=== PATIENT | female | born 1940 | race Caucasian/White ===

== ENCOUNTER → 2017-01-05 | Outpatient (CLI) | payer OTHER ==
[~2017-01-05] MED LIST: ASPI81TA28 PO; COEN1CAP32 PO; GARL400T4 PO; HYDR12.55 PO; LEVO50TA6 PO; METF1TAB85 PO; MULT-190 PO; MULT-845 PO; MULTCHW4 PO; OMEG1CAP26 PO; SIMV20TA5 PO; VTMD1000 PO
[2017-01-05 13:21] LABS: BASO % 1.1 %; BASO ABS # 0.06 K/uL (0-0.2); COMPLETE YES; EOS % 3.2 %; HEMATOCRIT 39.3 % (37-47); IG% 0.2 %; LYMPH % 26.9 %; LYMPH ABS # 1.52 K/uL (1.2-3.4); MEAN CELL VOLUME 87.5 fL (80-100); MEAN CORPUSCULAR HEMOGLOBIN 30.3 pg (25-34); MEAN CORPUSCULAR HGB CONC 34.6 g/dl (32-36); MEAN PLATELET VOLUME 10.6 fL (7.4-10.4); MONO % 7.3 %; NEUT % 61.3 %; PLATELET COUNT 288 K/uL (130-400); RED BLOOD COUNT 4.49 M/uL (4.2-5.4); WHITE BLOOD COUNT 5.65 K/uL (4.8-10.8)
[2017-01-05 13:41] LABS: ESTIMATED AVERAGE GLUCOSE 143 mg/dl; HA1C FLAG Normal (Normal)
[2017-01-05 13:53] LABS: CREATININE RANDOM URINE < 13.0 mg/dl
[2017-01-05 14:16] LABS: ALT/SGPT 26 U/L (12-78); AST/SGOT 19 U/L (15-37); BLOOD UREA NITROGEN 16 mg/dl (7-18); BUN/CREATININE RATIO 18.3 (10-20); CALCIUM 8.8 mg/dl (8.5-10.1); CARBON DIOXIDE 29 mmol/L (21-32); CHLORIDE 103 mmol/L (98-107); CREATININE 0.87 mg/dl (0.60-1.20); GLUCOSE 132 mg/dl (70-99); POTASSIUM 3.7 mmol/L (3.5-5.1); SODIUM 141 mmol/L (136-145)
[2017-01-05 14:24] LABS: ALKALINE PHOSPHATASE 73 U/L (45-117); CHOLESTEROL 147 mg/dl (0-200); CHOLESTEROL/HDL RATIO 2.6; HDL CHOLESTEROL 56 mg/dl; LDL CHOLESTEROL CALCULATED 62 mg/dl; TRIGLYCERIDES 144 mg/dl (0-150); VERY LOW DENSITY LIPOPROT CALC 29 mg/dl
== END | disposition home or self-care (01) ==
LOC: C.LABMFLN 09:34
PROVIDERS: ATTEND Family Medicine
DX: I10 Essential (primary) hypertension (principal); E78.5 Hyperlipidemia, unspecified; E11.9 Type 2 diabetes mellitus without complications; E03.9 Hypothyroidism, unspecified

== ENCOUNTER → 2017-07-19 | Outpatient (CLI) | payer OTHER ==
[2017-07-19 13:53] LABS: BLOOD UREA NITROGEN 14 mg/dl (7-18); BUN/CREATININE RATIO 14.9 (10-20); CALCIUM 9.2 mg/dl (8.5-10.1); CARBON DIOXIDE 29 mmol/L (21-32); CHLORIDE 102 mmol/L (98-107); CREATININE 0.91 mg/dl (0.60-1.20); GLUCOSE 147 mg/dl (70-99); PHOSPHORUS 3.5 mg/dl (2.5-4.9); POTASSIUM 3.8 mmol/L (3.5-5.1); SODIUM 140 mmol/L (136-145)
== END | disposition home or self-care (01) ==
LOC: C.LABMFLN 07:48
PROVIDERS: ATTEND Family Medicine
DX: E11.9 Type 2 diabetes mellitus without complications (principal)

== ENCOUNTER → 2018-01-14 | Outpatient (CLI) | payer OTHER ==
[2018-01-14 12:47] LABS: BASO % 0.7 %; BASO ABS # 0.04 K/uL (0-0.2); EOS % 3.8 %; EOS ABS # 0.22 K/uL (0-0.5); HEMATOCRIT 41.3 % (37-47); HEMOGLOBIN 13.7 g/dL (12.0-16.0); IG# 0.01 K/uL (0.00-0.02); LYMPH % 26.7 %; LYMPH ABS # 1.53 K/uL (1.2-3.4); MEAN CELL VOLUME 91.4 fL (80-100); MEAN CORPUSCULAR HEMOGLOBIN 30.3 pg (25-34); MEAN CORPUSCULAR HGB CONC 33.2 g/dl (32-36); MONO % 7.9 %; MONO ABS # 0.45 K/uL (0.11-0.59); NEUT % 60.7 %; NEUT ABS # 3.48 K/uL (1.4-6.5); PLATELET COUNT 295 K/uL (130-400); RED CELL DISTRIBUTION WIDTH CV 13.1 % (11.5-14.5); RED CELL DISTRIBUTION WIDTH SD 43.8 fL (36.4-46.3); WHITE BLOOD COUNT 5.73 K/uL (4.8-10.8)
[2018-01-14 13:09] LABS: HEMOGLOBIN A1C 6.5 % (4.5-5.6)
[2018-01-14 13:27] LABS: ALBUMIN 3.7 gm/dl (3.4-5.0); BLOOD UREA NITROGEN 19 mg/dl (7-18); CARBON DIOXIDE 27 mmol/L (21-32); GLUCOSE 143 mg/dl (70-99); POTASSIUM 3.7 mmol/L (3.5-5.1); SODIUM 138 mmol/L (136-145)
[2018-01-14 13:37] LABS: ALKALINE PHOSPHATASE 80 U/L (45-117); ALT/SGPT 24 U/L (12-78); AST/SGOT 17 U/L (15-37); CHOLESTEROL 148 mg/dl (0-200); CREATININE 1.01 mg/dl (0.60-1.20); LDL CHOLESTEROL CALCULATED 69 mg/dl; TOTAL PROTEIN 7.5 gm/dl (6.4-8.2)
== END | disposition home or self-care (01) ==
LOC: C.LABMFLN 07:12
PROVIDERS: ATTEND Family Medicine
DX: E11.9 Type 2 diabetes mellitus without complications (principal); I10 Essential (primary) hypertension; E03.9 Hypothyroidism, unspecified; E78.5 Hyperlipidemia, unspecified

== ENCOUNTER → 2018-05-17 | Day surgery (SDC) | payer OTHER ==
[2018-05-12 13:55] VITALS: Ht 171.5 cm; Wt 95.5 kg
[~2018-05-17] VITALS: Ht 171.5 cm; Wt 95.5 kg
[~2018-05-17] MED LIST changes: +AMOX500C3 PO; +ATROPINE SULFATE 0.1 MG/ML 5ML SYR IV PRN; +BUPIVACAINE 0.5 % 5 MG/1 ML PF 10ML VIAL ONE; +CEFAZOLIN 2000MG IV PUSH 15 ML IV SCH; +CEFAZOLIN SOD 1 GM VIAL ONE; +CEPH500C2 PO; +CHRO1CAP7 PO; +COEN1CAP17 PO; -COEN1CAP32 PO; +CYAN100020 PO; +DEXAMETHASONE SOD INJ 4 MG/ML VIAL ONE; +EpHEDrine SULFATE 50MG/5ML SYR ONE; +EpHEDrine SULFATE INJ 50 MG/ML AMP IV PRN; +FENTANYL CITRATE INJ 50 MCG/1 ML 2 ML VIAL IV PRN; +FENTANYL CITRATE INJ 50 MCG/1 ML 2 ML VIAL ONE; +GARL10007 PO; -GARL400T4 PO; +HYDR-5688 PO; +HYDROCODONE/ACETAMIN 5/325MG TAB PO PRN; +IBUPROFEN 600 MG TAB PO PRN; +LACTATED RINGER'S 1000ML 1,000 ML IV SCH; -LEVO50TA6 PO; +LEVO75TA5 PO; +LIDOCAINE HCL 2% 2 ML VIAL (20MG/ML) ONE; +METHYLENE BLUE 0.5% 10 ML VIAL ONE; +MIDAZOLAM HCL 1 MG/ML 2ML VIAL ONE; -MULTCHW4 PO; +ONDANSETRON INJ 2 MG/ML 2 ML VIAL IV PRN; +ONDANSETRON INJ 2 MG/ML 2 ML VIAL ONE; +PROMETHAZINE HCL INJ 6.25 MG in SODIUM CHLORIDE 0.9% 50ML 50 ML IV PRN; +PROPOFOL IV EMULSION 10 MG/ML 20 ML VIAL ONE; +SODIUM CHLORIDE 0.9% 1000ML 1,000 ML IV SCH; +SODIUM CHLORIDE 0.9% INJ 10 ML VIAL ONE
--- NOTE | 2018-05-17 11:46 | History & Physical Bridge - [place] ---
H&P Re-Evaluation Bridge Note: I have examined the patient, reviewed the History & Physical and in the interval since the performance of the History & Physical I have noted the following changes of clinical significance: No changes noted
--- NOTE | 2018-05-17 12:57 | [facility] Operative Report ---
Operative Report Operative Date May 17, 2018. Pre-Operative Diagnosis Breast Cancer Post-Operative Diagnosis Same Procedure(s) Performed Right Breast Tissue Re-Excision Surgeon Dr. Perry Labor Arbitrator Surgeon(s) None Estimated Blood Loss 10 mL Findings 50 cc hematoma Specimens A. Right Breast Tissue - out @ 1228. Long Silk Suture = Inferior, Short Silk Suture = Superior, Plain Suture = Posterior/Deep, Methylene Blue = New Lateral Margin Drains None Anesthesia Type General Complication(s) none Disposition Recovery Room / PACU I attest to the content of the Intraoperative Record and any orders documented therein. Any exceptions are noted below.
--- NOTE | 2018-05-17 13:00 | Discharge Instructions-SurgCtr ---
Discharge Instructions Date of Service May 17, 2018. Visit Reason for Visit: Right Breast Dcis Discharge Discharge Diagnosis / Problem: Rt breast cancer Discharge Goals Goal(s): Decrease discomfort, Improve function, Improve disease control Medications Stopped Medications Name(s): aspirin COQ 10 Activity Recommendations Activity Limitations: as noted below Lifting Limitations: no more than 10 pounds Exercise/Sports Limitations: until after follow-up appointment May Resume Sexual Activity: when tolerated Shower/Bathe: tomorrow Driving or Machine Use: resume 3 days after discharge Anesthesia . Post Anesthesia Instructions: If you have had General Anesthesia or IV Sedation: * Do not drive today. * Resume driving when surgeon permits. * Do not make important decisions or sign legal documents today. * Call surgeon for: 1. Temperature elevations greater than 101 degrees F. 2. Uncontrollable pain. 3. Excessive bleeding. 4. Persistent nausea and vomiting. 5. Medication intolerance (nausea, vomiting or rash). * For nausea and vomiting use only clear liquids such as: tea, soda, bouillon until nausea subsides, then gradually increase diet as tolerated. * If you have any concerns or questions, call your surgeon's office. If physician is unavailable and it is an emergency, call 911 or go to the nearest emergency room. . Instructions / Follow-Up Instructions / Follow-Up SPECIAL CARE INSTRUCTIONS: * Cover incisions and change daily for comfort/drainage. * May use ibuprofen for pain as tolerated. * Expect some swelling and bruising. Call your doctor if: * Temperature above 101 degrees * Pain not relieved by pain medicine ordered * There is increased drainage or redness from any incision * You have any unanswered questions or concerns [phone]. FOLLOW UP VISIT: If not already scheduled, please call the office for a follow-up visit. for next week- some suture removal OFFICE PHONE NUMBER: Dr. Perry Office Diet Recommendations Home Diet: resume previous diet Procedures Procedures Performed: Right Breast Tissue Re-Excision Pending Studies Studies pending at discharge: no Medical Emergencies . Who to Call and When: Medical Emergencies: If at any time you feel your situation is an emergency, please call 911 immediately. . Non-Emergent Contact Non-Emergency issues call your: Primary Care Provider, Surgeon . . "Provider Documentation" section prepared by Ishmael Perry. .
--- NOTE | 2018-05-17 13:50 | OPERATIVE REPORT ---
DATE OF OPERATION: 05/17/2018 NAME OF OPERATION: Reexcision of right breast tissue. PREOPERATIVE DIAGNOSIS: Right breast cancer. POSTOPERATIVE DIAGNOSIS: Right breast cancer. STAFF SURGEON: Dr. Perry. ANESTHESIA: General. DESCRIPTION OF PROCEDURE: The patient was brought in the operating room and placed on the operating table in supine position. Her right breast was prepped and draped in usual fashion. She had Steri-Strips in place. These were removed. Her right axilla had sutures in place of the incision. These were removed. 0.5% plain Marcaine was used to anesthetize the incision in the breast. It was reopened, encountering some hematoma which was removed. The breast was then irrigated. I then removed the lateral and posterior/deep tissue I then marked the tissue with a long silk suture inferior, short silk suture superior, plain suture was posterior/deep, and then methylene blue was on the new lateral margin. 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 At this point, after appropriate irrigation with antibiotic solution, the deep tissue was reapproximated using 2-0 plain catgut suture, then the subcutaneous tissue reapproximated using 2-0 chromic suture, then the skin reapproximated using 5-0 Prolene suture. Dressing applied and the patient transferred to recovery room in stable condition. I attest to the content of the Intraoperative Record and any orders documented therein. Any exceptions are noted below. ARIANNA
[2018-05-17 13:54] VITALS: BP 143/82; PULSE 81; O2SAT 92
--- NOTE | 2018-05-17 13:59 | Anesthesia Progress Nt - [facility] ---
Anesthesia Post Op Note Date & Time May 17, 2018 at 13:59 Vital Signs Pain Intensity: 0 Vital Signs Past 12 Hours Date Time Temp Pulse Resp B/P (MAP) Pulse Ox O2 Delivery O2 Flow Rate FiO2 05/17/18 13:54 81 20 143/82 (102) 92 Room Air 05/17/18 13:38 36.5 81 22 153/76 (101) 94 Room Air 05/17/18 13:36 162/84 05/17/18 13:34 82 14 05/17/18 13:34 83 14 95 05/17/18 13:33 79 16 90 05/17/18 13:33 79 16 05/17/18 13:33 36.4 79 20 163/77 98 Room Air 05/17/18 13:31 163/77 05/17/18 13:28 79 14 05/17/18 13:28 80 14 91 05/17/18 13:27 153/78 05/17/18 13:24 78 18 99 05/17/18 13:24 77 18 05/17/18 13:23 78 13 05/17/18 13:23 78 13 99 05/17/18 13:21 157/87 05/17/18 13:18 78 15 05/17/18 13:18 77 15 99 05/17/18 13:17 78 16 99 05/17/18 13:17 78 16 05/17/18 13:16 164/77 05/17/18 13:12 80 17 99 05/17/18 13:12 80 17 05/17/18 13:11 165/80 05/17/18 13:08 168/78 05/17/18 13:07 36.5 86 16 168/78 96 Mask 10 05/17/18 11:25 36.8 64 20 145/81 (102) 95 Notes Mental Status: alert / awake / arousable, participated in evaluation Pt Amnestic to Procedure: Yes Nausea / Vomiting: adequately controlled Pain: adequately controlled Airway Patency, RR, SpO2: stable & adequate BP & HR: stable & adequate Hydration State: stable & adequate Anesthetic Complications: no major complications apparent
== END | disposition home or self-care (01) ==
LOC: X.SURG 10:46
PROVIDERS: ATTEND Surgery
DX: D05.11 Intraductal carcinoma in situ of right breast (principal); I10 Essential (primary) hypertension; E11.9 Type 2 diabetes mellitus without complications; Z79.82 Long term (current) use of aspirin; Z79.84 Long term (current) use of oral hypoglycemic drugs; Z79.899 Other long term (current) drug therapy

== ENCOUNTER → 2018-05-30 | Outpatient (CLI) | payer OTHER ==
[~2018-05-30] MED LIST changes: -ATROPINE SULFATE 0.1 MG/ML 5ML SYR IV PRN; -BUPIVACAINE 0.5 % 5 MG/1 ML PF 10ML VIAL ONE; -CEFAZOLIN 2000MG IV PUSH 15 ML IV SCH; -CEFAZOLIN SOD 1 GM VIAL ONE; -DEXAMETHASONE SOD INJ 4 MG/ML VIAL ONE; -EpHEDrine SULFATE 50MG/5ML SYR ONE; -EpHEDrine SULFATE INJ 50 MG/ML AMP IV PRN; -FENTANYL CITRATE INJ 50 MCG/1 ML 2 ML VIAL IV PRN; -FENTANYL CITRATE INJ 50 MCG/1 ML 2 ML VIAL ONE; -HYDROCODONE/ACETAMIN 5/325MG TAB PO PRN; -IBUPROFEN 600 MG TAB PO PRN; -LACTATED RINGER'S 1000ML 1,000 ML IV SCH; -LIDOCAINE HCL 2% 2 ML VIAL (20MG/ML) ONE; -METHYLENE BLUE 0.5% 10 ML VIAL ONE; -MIDAZOLAM HCL 1 MG/ML 2ML VIAL ONE; -ONDANSETRON INJ 2 MG/ML 2 ML VIAL IV PRN; -ONDANSETRON INJ 2 MG/ML 2 ML VIAL ONE; -PROMETHAZINE HCL INJ 6.25 MG in SODIUM CHLORIDE 0.9% 50ML 50 ML IV PRN; -PROPOFOL IV EMULSION 10 MG/ML 20 ML VIAL ONE; -SODIUM CHLORIDE 0.9% 1000ML 1,000 ML IV SCH; -SODIUM CHLORIDE 0.9% INJ 10 ML VIAL ONE
--- NOTE | 2018-05-31 14:58 | MAMMOGRAPHY REPORT ---
BREAST MRI OF BOTH BREASTS: 05/30/2018 CLINICAL HISTORY: 78-year-old woman initially diagnosed with right breast invasive ductal carcinoma o n 04/13/2018. 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 Reexcision was p erformed and DCIS also involved the new lateral margin. Retrospective mammography assessment demonstr ates the DCIS is mammographically occult. COMPARISON: Prior screening mammograms dated 04/06/2012, 05/31/2013, 10/03/2014, 10/08/2015, 01/12/2017, 03/31/2018, diagnostic mammogram and ultrasound dated 04/07/2018, ultrasound core biopsy and postproce dure mammograms dated 04/13/2018, right breast needle localization and specimen radiograph dated 2017. TECHNIQUE: Using a 1.5 Tana magnet and dedicated breast coil, multisequence axial images were obtain ed through the breasts. After uneventful IV administration of 10 mL of Gadavist, dynamic multiphase contrast-enhanced axial images, and sagittal postcontrast were obtained. Temporal subtraction axial images and 3-D MIP images are provided. Everything was then reviewed on a 3-D workstation, [employer]. FINDINGS: Right breast: There is moderate background parenchymal enhancement of the right breast. There is als o diffuse skin thickening, skin edema and trabecular edema of the right breast most prominent anterio rly. There are 2 fluid collections/lumpectomy cavities in the right breast. The first is located in the 12:00 anterior right breast, likely representing the first lumpectomy cavity, which is oval in s hape measuring 4.4 cm in AP by 2.2 cm in craniocaudal by 2.9 cm in transverse dimension. There is di ffuse circumferential non-mass enhancement surrounding this biopsy cavity which could represent posts urgical change and/or residual disease, although it should be noted that all of the surgical specimen margins were negative for additional disease except the lateral margin. A second discreet yet abutt ing fluid collection is identified lateral, posterior and slightly inferior to the first, measuring 6 .3 cm in AP by 4.5 cm in craniocaudal by 4.2 cm in transverse dimension, containing heterogeneous blo od products within. There is mild non-mass enhancement surrounding this fluid collection, but asymme tric non-mass enhancement along the inferior lateral aspect measuring 3.9 cm in AP by 1.8 cm in trans verse dimension, best seen on axial page 72/116. This is concerning for residual DCIS given the asym metric nature although again, postsurgical change could appear similar. No other areas of suspicious mass enhancement is seen in the right breast. There is architectural distortion in the right axilla from sentinel lymph node biopsy. No suspicious right axillary, subpectoral or intramammary lymph no maikel identified. Left breast: There is mild background parenchymal enhancement of the left breast with scattered round ed and oval enhancing foci throughout. There are 2 discrete focal areas of somewhat linear enhanceme nt in the left breast, the first linear non-mass enhancement is seen in the 1:00 posterior left breas t measuring 0.8 cm (axial page 44/116, sagittal page 21/120) with associated persistent kinetics, no T2 hyperintensity. The second is located in the 12:00 to 1:00 middle one third of the left breast on axial page 54/116, sagittal page 22/120, measuring 0.7 cm also with associated persistent kinetics. No dominant enhancing mass or suspicious washout kinetics identified in the left breast. No focal s kin thickening or nipple retraction. No suspicious left axillary, subpectoral or internal mammary ly mphadenopathy. IMPRESSION: ACR BI-RADS CATEGORY 4: SUSPICIOUS 1. There are recent postsurgical changes in the right breast with 2 discrete lumpectomy cavities/flu id collections seen in the 12:00 anterior breast and right upper outer quadrant. There is diffuse no n-mass enhancement circumferentially surrounding the anterior 12:00 lumpectomy cavity and somewhat as ymmetric focal non-mass enhancement along the inferolateral aspect of the second lumpectomy cavity/fl uid collection. Although all of these findings could be related to recent surgery representing posts urgical change and edema, the focal nature of the non-mass enhancement near the second larger lumpect essence cavity is concerning for additional DCIS. Correlation with surgical margins is recommended with regard to further surgical management. 2. Mild background enhancement of the left breast, with 2 conspicuous subcentimeter focal areas of l inear non-mass enhancement at approximately 1:00 posterior depth and 12:00 to 1:00 middle depth that could represent fibrocystic change although DCIS cannot be completely excluded. MRI guided biopsy of 1 versus both of these areas is recommended for further characterization. Given the non-mass nature of the enhancement, second look ultrasound would likely be unyielding. 3. No suspicious right or left axillary lymphadenopathy. Aleyda Epps M.D. ay/:05/30/2018 20:57:35 Glass Enamel Mixer: retort load expediter, [facility] letter sent: Abnormal 4/5 BI-RADS Code: ACR BI-RADS Category 4: Suspicious
== END | disposition home or self-care (01) ==
LOC: C.MRI 06:01
PROVIDERS: ATTEND Surgery
DX: D05.11 Intraductal carcinoma in situ of right breast (principal)

== ENCOUNTER → 2018-06-08 | Outpatient (CLI) | payer OTHER ==
[~2018-06-08] MED LIST changes: +GADAVIST IV PRN; +LIDO/EPINEPHRINE/SOD BICARB 20 ML VIAL ONE; +LIDOCAINE 1% BUFFERED INJ 20 ML VIAL ONE
--- NOTE | 2018-06-08 12:04 | Discharge Instructions ---
Discharge Instructions Procedure Procedure Date: Jun 08, 2018. Reason for visit: 2 Left breast non mass enhancement Discharge Discharge Date: Jun 08, 2018. Discharge Diagnosis: post left breast MRI guided biopsy x 2 Instructions Activity Recommendations: Additional Limitations (see below) Return to School/Work: no limitations Recommended Home Diet: No Limitations Provider Instructions: ACTIVITY RECOMMENDATIONS: * No lifting, pushing, pulling or exercising the affected side for three days. RETURN TO SCHOOL/WORK: * You may return to work/school after the procedure, but do not perform any strenuous activities for 24 to 48 hours. MEDICATIONS: * Tylenol (two 325 mg) every four to six hours if needed for mild pain (if not allergic to Tylenol). DIET: * Resume previous diet. SPECIAL CARE INSTRUCTIONS: * Keep biopsy site dry for 24 hours. May shower after 24 hours, but do not soak (bathe) incision. May remove Tegaderm (plastic patch) 24 hours after procedure * Leave the steri-strips on for one week. Allow the steri-strips to fall off by themselves. If not off after one week, you may remove them. You may place a Bandaid crosswise over the strips, if desired. * Apply ice 10 minutes on and 10 minutes off as needed. * Wear a bra at bedtime to sleep more comfortably for 2-3 days. * Your referring physician should have the results after approximately 5 to 7 business days. * Call for unusual bleeding, fever, drainage, etc or if you have any questions call [phone] during normal business hours or after hours call Dr Epps, . FOLLOW UP VISIT: Follow-up with Referring Physician as scheduled. Allergies Coded Allergies: Adhesives (Verified Allergy, Intermediate, rash itchy blister, 05/17/18) Sunni Tran Recommendations: Call your doctor if: * Temperature above 101 degrees * Pain not relieved by pain medicine ordered * There is increased drainage or redness from any incision * You have any unanswered questions or concerns. Your Doctors Instructions noted above were prepared by provider Aleyda Epps. Patient Signature Section: Patient Instructions Signature Page Mattie Hanley Patient (or Guardian) Signature/Date: I have read and understand the instructions given to me by my caregivers. Caregiver/RN/Doctor Signature/Date: The above-named patient and/or guardian has received patient instructions on this date. + Original Patient Signature Page (only) stays with chart. Please make copy for patient.
--- NOTE | 2018-06-09 15:09 | MAMMOGRAPHY REPORT ---
MULTIPLE MRI BIOPSIES LEFT BREAST: 06/08/2018 CLINICAL HISTORY: 78-year-old woman with recently diagnosed right breast cancer status post 2 lumpect omies with DCIS present at the surgical margin. She presented for bilateral breast MRI to assess for any disease in the left breast and also any obvious residual disease in the right breast. 2 linear ar eas of non-mass enhancement were seen in the left breast at approximately 1:00 posterior depth and 12 :00 middle depth, for which MRI guided biopsy was recommended. COMPARISON: Breast MRI dated 05/30/2018, surgical specimen and needle localization dated 05/02/2018, ul trasound core biopsy of the right breast dated 04/13/2018 and screening mammograms dated 03/31/2018. PATIENT CONSENT: After explaining the risks, benefits and alternatives of the procedure to the patien t, informed consent was obtained both verbally and in writing. Specific risks include: Bleeding, inf ection, puncture of adjacent structure, medication reaction, breast or lung injury, sampling error. PROCEDURE DESCRIPTION: A timeout was performed prior to starting the procedure, and the left breast w as agreed as the site for both biopsies. The patient was placed prone on a 1.5 Tana MRI scanner. The lateral aspect of the left breast was c leansed with ChloraPrep. The breast was then positioned in a dedicated breast coil and MRI guidance grid device. After localizing sequences were obtained, pre-and postcontrast axial sequences were obtained, using 1 0 mL of Gadavist without immediate reaction. The postcontrast images confirm the persistence of both linear areas of non-mass enhancement in the 1:00 posterior and 12:00 middle one third of the left br east. Using these images, targeting was performed using Personally software. The skin was re-prepped with Betadine through the grid, and after local anesthesia was achieved, an i ntroducer sheath and localizing shredder operator were placed into the left breast via a lateral approach at t he lesion in the 1:00 posterior axis labeled site "A". A second introducer sheath and localizing obt urator were placed into the left breast via a lateral approach at the lesion in the 12:00 middle one third of the left breast labeled site "B". The location of both obturator sheaths was confirmed with additional axial images. After confirming adequate placement of the obturator sheaths, 6 samples we re obtained at site A and 7 samples were obtained at site B with a [employer] 9-gauge vacuum-assisted biopsy device. Post biopsy images demonstrate good sampling of lesion B. 4 additional samples were obtained at site A. Then through the introducer sheath, metallic biopsy marker clips were placed at each site. In pa rticular, a dumbbell-shaped biopsy clip is seen in the 1:00 posterior region and a figure of 8-shaped clip is seen in the 12:00 middle one third of the left breast. The patient tolerated the procedure well and there was no immediate complication. Hemostasis was ach ieved after several minutes of manual compression. The samples were sent to pathology in an appropri ately labeled container. Postprocedure left CC and ML tomosynthesis images were obtained. 2 new metallic biopsy marker clips are seen in the left breast at 12:00 and 1:00. No significant postbiopsy hematoma. IMPRESSION: MRI BIOPSY Status post left breast MRI guided biopsy 2 in the 12:00 and 1:00 axes, for linear non-mass enhancem ent seen on recent breast MRI, with biopsy marker clips placed at each site. The patient will receive notification of the biopsy results from her referring physician. [facility] and further surgical management, would recommend a follow-up breast MRI in [facility] 6 months to ensure stability and adequate sampling after biopsy. Aleyda Epps M.D. ay/:06/08/2018 16:20:18 Applied Psychology Professor: Rossi Lizama, [employer]; global expansion sales director, [facility]
== END | disposition home or self-care (01) ==
LOC: C.MRI 09:27
PROVIDERS: ATTEND Surgery
DX: C50.911 Malignant neoplasm of unspecified site of right female breast (principal); R92.8 Other abnormal and inconclusive findings on diagnostic imaging of breast; N60.12 Diffuse cystic mastopathy of left breast; D24.2 Benign neoplasm of left breast

== ENCOUNTER 2018-12-19 06:48 | Inpatient (IN) ==
--- NOTE | 2018-12-13 09:19 | Anesthesiology Consultation ---
Date of Service December 13, 2018 Assessment & Plan (1) Encounter for pre-operative examination: Chart Review Chart Review: Acceptable Risk for Surgery and Patient NOT seen in Pre Admission Testing Consults Requested none History Surgery Operation Date: 12/19/18 11:20 Proposed Procedures p Left Breast Mastectomy (No Needle Local or [place] Node) - Ishmael Perry MD , FACS Height/Weight Height: 5 ft 6 in Weight: 90.718 kg Allergies Allergy/AdvReac Type Severity Reaction Status Date / Time adhesive Allergy Intermediate rash Verified 12/08/18 09:36 itchy blister Medications Home Medications Medication Instructions Recorded Confirmed Last Taken aspirin 1 tab PO QAM 06/23/18 12/08/18 06/13/18 cholecalciferol (vitamin D3) 1 tab PO QPM 06/23/18 12/08/18 06/26/18 12:00 [Vitamin D3] cinnamon bark [Cinnamon] 1 cap PO QPM 06/23/18 12/08/18 06/13/18 coenzyme Q10 [Co Q-10] 100 mg PO QPM 06/23/18 12/08/18 06/13/18 cyanocobalamin (vitamin B-12) 1,000 mcg PO QPM 06/23/18 12/08/18 06/26/18 12:00 [Vitamin B-12] garlic 1,000 mg PO QPM 06/23/18 12/08/18 06/13/18 hydrochlorothiazide 12.5 mg PO QAM 06/23/18 12/08/18 06/26/18 12:00 levothyroxine 75 mcg PO QAM 06/23/18 12/08/18 06/27/18 04:00 metformin 500 mg PO BID 06/23/18 12/08/18 06/26/18 18:00 viawpedretev-xnmcegqw-pmvdro 1 tab PO QPM 06/23/18 12/08/18 06/26/18 12:00 [Multivitamin 50 Plus] omega-3 fatty acids 2,000 mg PO QPM 06/23/18 12/08/18 06/13/18 simvastatin 20 mg PO PM 06/23/18 12/08/18 06/26/18 18:00 acetaminophen [Tylenol] 325 mg PO Q6H PRN 12/08/18 12/08/18 Unknown anastrozole 1 mg PO QAM 12/08/18 12/08/18 Unknown vit C-E-zinc kqf-immwft-forqdf 1 tab PO QPM 12/08/18 12/08/18 Unknown [[facility]] Past Medical History Medical History Bronchitis 10/2018-TREATED BY PCP-RECOVERED PER PT-NO SOB Cancer HX RIGHT-BREAST CANCER Colon polyps Diabetes mellitus, type 2 Hyperlipidemia Hypertension Hypothyroidism Obesity Osteoarthritis Past Family History Family History Brother Family history of diabetes mellitus Other Family hx colonic polyps Past Surgical History Surgical History H/O breast biopsy H/O hand surgery LEFT History of cataract surgery R/L History of lumpectomy 05/02/18: R breast lumpectomy with needle loc with [facility] 05/17/18: R breast tissue reexcision History of total hip arthroplasty R/L S/P mastectomy right. 06/27/2018. LMA #4. no issues Social History Smoking Status: Never smoker Do You Dip or Chew Tobacco: No Hx Alcohol Use: Yes Hx Substance Use: No Testing Electrocardiogram Date: 04/27/18 Findings: + NSR @ (61) Normal sinus rhythm.
[~2018-12-19 06:48] MED LIST changes: -AMOX500C3 PO; -ASPI81TA28 PO; +CEFAZOLIN 2000MG 2,000 MG/15 ML SYR IV SCH; -CEPH500C2 PO; -CHRO1CAP7 PO; -COEN1CAP17 PO; -CYAN100020 PO; -GADAVIST IV PRN; -GARL10007 PO; -HYDR-5688 PO; -HYDR12.55 PO; -LEVO75TA5 PO; -LIDO/EPINEPHRINE/SOD BICARB 20 ML VIAL ONE; -LIDOCAINE 1% BUFFERED INJ 20 ML VIAL ONE; +LR 15ML/HR IV SCH; -METF1TAB85 PO; -MULT-190 PO; -MULT-845 PO; -OMEG1CAP26 PO; -SIMV20TA5 PO; -VTMD1000 PO
[2018-12-19] MEDS ORDERED: MIDAZOLAM HCL 1 MG/ML 2ML VIAL ONE (08:02)
[2018-12-19] MEDS ORDERED: ONDANSETRON INJ 2 MG/ML 2 ML VIAL ONE (08:02)
[2018-12-19] MEDS ORDERED: DEXAMETHASONE SOD INJ 4 MG/ML VIAL ONE (08:02)
[2018-12-19] MEDS ORDERED: LIDOCAINE HCL 2% 2 ML VIAL/AMP(20MG/ML) INFIL ONE (08:02)
[2018-12-19] MEDS ORDERED: PROPOFOL IV EMULSION 10 MG/ML 20 ML VIAL IV ONE (08:02)
[2018-12-19] MEDS ORDERED: fentaNYL citrate 100 MCG/2 ML VIAL ONE ×2 (08:03→09:17)
--- NOTE | 2018-12-19 08:34 | History & Physical Bridge Note ---
Date of Service December 19, 2018 History & Physical Bridge Note I have examined the patient, reviewed the History & Physical and in the interval since the performance of the History & Physical I have noted the following changes of clinical significance: no changes noted
[2018-12-19] MEDS ORDERED: BUPIVACAINE 0.5 % 5 MG/1 ML MPF 30ML VIAL ONE (08:43)
[2018-12-19] MEDS ORDERED: METHYLENE BLUE 0.5% 10 ML VIAL ONE (08:43)
[2018-12-19] MEDS ORDERED: ATROPINE SULFATE 0.1 MG/ML 10ML SYR IV PRN (08:47)
[2018-12-19] MEDS ORDERED: fentaNYL citrate 100 MCG/2 ML VIAL IV PRN (08:47)
[2018-12-19] MEDS ORDERED: LABETALOL HCL IV 5 MG/ML 20ML IV PRN (08:47)
[2018-12-19] MEDS ORDERED: PHENYLEPHRINE 100MCG/ML 5ML SYR IV PRN (08:47)
[2018-12-19] MEDS ORDERED: ePHEDrine sulfate 50 MG/ML AMP IV PRN (08:47)
[2018-12-19] MEDS ORDERED: HYDROmorphone INJ 1 MG/ML SYRINGE IV PRN (08:47)
[2018-12-19] MEDS ORDERED: MEPERIDINE HCL 25 MG/ML CARP IV PRN (08:47)
[2018-12-19] MEDS ORDERED: ONDANSETRON INJ 2 MG/ML 2 ML VIAL IV PRN ×2 (08:47→11:05)
[2018-12-19] MEDS ORDERED: ACETAMINOPHEN 1000 MG/100 ML IV IV ONE (09:06)
[2018-12-19] MEDS ORDERED: KETOROLAC 30 MG/ML VIAL ONE (09:27)
[2018-12-19] MEDS ORDERED: ePHEDrine sulfate 50 MG/ML SYR ONE (09:31)
[2018-12-19] MEDS ORDERED: ACETAMINOPHEN 1,000 MG/100 ML VIAL IV ONE (09:58)
--- NOTE | 2018-12-19 09:58 | Operative Report ---
Post Operative Report Pre & Post Diagnosis Operation Date: 12/19/18 08:40 Pre-Op Diagnosis: Prophalactic Left Breast Removal Post-Op Diagnosis: Prophalactic Left Breast Removal same Procedure Operation Date: 12/19/18 08:40 Actual Procedures p Left Breast Mastectomy (Left) - Ishmael Perry MD, FACS same Surgeon Ishmael Perry MD, FACS Brass Cutter Dean Johnson Estimated Blood Loss 20 Findings Consistent with Post-Op Diagnosis Specimens Lt breast Description of Procedure see dictated note I attest to the content of the Intraoperative Record and any orders documented therein. Any exceptions are noted below.
--- NOTE | 2018-12-19 10:28 | Operative Report ---
DATE OF OPERATION: 12/19/2018 NAME OF OPERATION: Left mastectomy. PREOPERATIVE DIAGNOSES: Prophylactic mastectomy with history of right breast ductal carcinoma in situ. POSTOPERATIVE DIAGNOSES: Prophylactic mastectomy with history of right breast ductal carcinoma in situ. STAFF SURGEON: Dr. Perry. BEEF CATTLE FARM WORKER: Donny Johnson PA-C. ANESTHESIA: General. DESCRIPTION OF PROCEDURE: The patient was brought in the Operating Room and placed on the operating table in supine position. Her left arm was extended on an arm board. Her left breast and axillae were prepped and draped in usual fashion. Elliptical incision was made around the nipple areolar complex from sternum to axilla carrying dissection down and then constructing superior and inferior breast flaps by dissecting the breast tissue away from the subcutaneous tissue. The breast was then dissected away from the pectoralis major muscle. Vessels were ligated using 2-0 silk suture and 2-0 plain suture. The breast was marked with silk suture laterally and sent for routine pathology. The site was irrigated. Then a 15 round Carter-Torres drain placed into the wound, secured to the skin using 3-0 nylon suture. Subcutaneous tissue reapproximated using 3-0 Vicryl suture, then the skin reapproximated using subcuticular 4-0 Monocryl with Steri-Strips and 4-0 nylon sutures laterally. Dressing applied with an [place] wrap and the patient transferred to Recovery Room in stable condition. My professional nursing assistant helped with prepping and draping the resection of the breast tissue and closure of the wound. I attest to the content of the Intraoperative Record and any orders documented therein. Any exception s are noted below.
--- NOTE | 2018-12-19 10:29 | Anesthesiology Progress Note ---
Date of Service December 19, 2018 Anesthesia Post Procedure Vital Signs Vital Signs: Temp Pulse Pulse Resp BP BP Pulse Ox 12/19/18 10:25 72 16 151/80 H 98 12/19/18 10:15 71 16 144/75 H 98 12/19/18 10:07 36.1 C L 75 16 150/76 H 98 12/19/18 07:50 36.9 C 73 18 143/77 H 92 Notes Mental Status: alert / awake / arousable Patient Amnestic to Procedure: Yes Nausea / Vomiting: adequately controlled Pain: adequately controlled Airway Patency, RR, SpO2: stable & adequate BP & HR: stable & adequate Hydration State: stable & adequate Anesthetic Complications: no major complications apparent and Pt Satisfied with anesthetic care
[2018-12-19] MEDS ORDERED: ACETAMINOPHEN 325 MG TAB PO PRN (11:05)
[2018-12-19] MEDS ORDERED: PROMETHAZINE HCL 12.5 MG in SODIUM CHLORIDE 0.9% 50 ML IV PRN (11:05)
[2018-12-19] MEDS ORDERED: HYDROCODONE/ACETAMOPHEN 5/325MG TAB PO PRN ×2 (11:05)
[2018-12-19] MEDS ORDERED: MoRPHine SULFATE 4 MG/ML 1 ML CARP\\VIAL IV PRN ×2 (11:05)
[2018-12-19] MEDS ORDERED: DEXTROSE 50% 50 ML SYRINGE IV PRN (11:19)
[2018-12-19] MEDS ORDERED: GLUCAGON FOR INJ 1 MG VIAL SQ PRN (11:19)
[2018-12-19] MEDS ORDERED: GLUCOSE 40% GEL 15 GM TUBE PO PRN (11:19)
[2018-12-19] MEDS ORDERED: CARBOHYDRATES FOR HYPOGLYCEMIA PO PRN (11:19)
[2018-12-19] MEDS ORDERED: GLUCOSE 10 TABS/TUBE PO PRN (11:19)
--- NOTE | 2018-12-19 11:21 | Consultation ---
Date of Consultation December 19, 2018 Assessment & Plan (1) S/P mastectomy: Postop day #2 status post prophylactic left mastectomy with history of right breast DCIS. Doing well postoperatively -Postoperative management as per surgeon -Pain control, bowel regimen as needed MATTHIEU drain in place -Follow CBC in the morning (2) Hyperlipidemia: Stable -Continue Zocor 20 mg nightly (3) Hypothyroidism: TSH 1.98 in 05/2018 -Continue levothyroxine 75 mcg daily (4) Diabetes mellitus, type 2: Very well controlled, not on insulin at home. Only on metformin at home. Most recent hemoglobin A1c 6.5% in 07/2018 -Hold metformin while inpatient -Start NovoLog sliding scale q. 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 Perry Attending Physician: Ishmael Perry MD, [facility] History of Present Illness This patient is a 78-year-old female with a history of DM 2, right breast cancer (DCIS),HTN, hyperlipidemia, hypothyroidism, obesity, and OA, who presents to the hospital for prophylactic left mastectomy. She is doing very well in the immediate postoperative period. She reports minimal pain in the left chest. She denies substernal chest pain or shortness of breath, denies abdominal pain. She has no issues with constipation or diarrhea, no nausea. Allergies Allergy/AdvReac Type Severity Reaction Status Date / Time adhesive Allergy Intermediate rash Verified 12/19/18 07:22 itchy blister Home Medications Home Medications Medication Instructions Recorded Confirmed Type Multivitamin 50 Plus 1 tab PO QPM 06/23/18 12/19/18 History aspirin 1 tab PO QAM 06/23/18 12/19/18 History cholecalciferol (vitamin D3) 1 tab PO QPM 06/23/18 12/19/18 History [Vitamin D3] cinnamon bark [Cinnamon] 1 cap PO QPM 06/23/18 12/19/18 History coenzyme Q10 [Co Q-10] 100 mg PO QPM 06/23/18 12/19/18 History cyanocobalamin (vitamin B-12) 1,000 mcg PO QPM 06/23/18 12/19/18 History [Vitamin B-12] garlic 1,000 mg PO QPM 06/23/18 12/19/18 History hydrochlorothiazide 12.5 mg PO QAM 06/23/18 12/19/18 History levothyroxine 75 mcg PO QAM 06/23/18 12/19/18 History metformin 500 mg PO BID 06/23/18 12/19/18 History omega-3 fatty acids 2,000 mg PO QPM 06/23/18 12/19/18 History simvastatin 20 mg PO PM 06/23/18 12/19/18 History acetaminophen [Tylenol] 325 mg PO Q6H PRN 12/08/18 12/08/18 History anastrozole 1 mg PO QAM 12/08/18 12/19/18 History vit C-E-zinc rws-edtpio-hkdpub 1 tab PO QPM 12/08/18 12/19/18 [facility] Patient History Medical History History of breast cancer Bronchitis (Resolved) 10/2018-TREATED BY PCP-RECOVERED PER PT-NO SOB Cancer HX RIGHT-BREAST CANCER Colon polyps Diabetes mellitus, type 2 Hyperlipidemia Hypertension Hypothyroidism Obesity Osteoarthritis Surgical History H/O breast biopsy H/O hand surgery LEFT History of cataract surgery R/L History of lumpectomy 05/02/18: R breast lumpectomy with needle loc with SLNB 05/17/18: R breast tissue reexcision History of total hip arthroplasty R/L S/P mastectomy right. 06/27/2018. LMA #4. 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 Physical Exam Vital Signs (Past 24 Hours): Last Vital Signs Temp 36.6 C 12/19/18 10:55 Pulse 70 12/19/18 10:55 Resp 14 12/19/18 10:55 BP 154/89 H 12/19/18 10:55 Pulse Ox 94 12/19/18 10:55 Constitutional: WD/WN, vitals as above (Obese) Eyes: PERRL, conjunctivae normal, anicteric sclerae ENMT: external ear and nose normal, oropharynx normal Neck: trachea midline, no thyromegaly Respiratory: normal respiratory effort, lungs clear to auscultation Cardiovascular: RRR, no murmur, no edema Chest (Breasts): Chest: + abnormal inspection of chest (Bilateral mastectomy, dressing and [place] wrap in place clean dry and intact) Gastrointestinal (Abdomen): normal bowel sounds, soft, nontender, no hepatosplenomegaly Musculoskeletal: Extremities: extremities normal to inspection; no cyanosis and no clubbing Skin: no rashes, warm and dry Neurologic: moves all extremities and awake; no focal motor deficits Psychiatric: A+Ox3, euthymic affect Results & Data Laboratory Results 12/19/18 12/19/18 12/19/18 Range/Units 11:55 10:11 07:14 POC Glucose 146 H 139 H 140 H (70-99) (1) Diabetes mellitus, type 2 Diabetes mellitus snf insulin use: without buttermaker helper use Diabetes mellitus complication status: without complication Qualified Code(s): E11.9 - Type 2 diabetes mellitus without complications
[2018-12-19] MEDS: INSULIN ASPART 100 UNITS/ML 3 ML PEN SC SCH ×3 (13:29→20:56)
[2018-12-19] MEDS: CEFAZOLIN 1000MG 1,000 MG/7.5 ML SYR IV SCH (16:40)
[2018-12-19] MEDS ORDERED: SIMVASTATIN 20 MG TAB PO SCH (21:00)
[2018-12-20] MEDS: CEFAZOLIN 1000MG 1,000 MG/7.5 ML SYR IV SCH ×2 (00:27→09:12)
[2018-12-20 05:33] LABS: Basophils # (auto) 0.01 K/uL (0-0.2); Basophils % (auto) 0.1 %; Eosinophils # (auto) 0.07 K/uL (0-0.5); Eosinophils % (auto) 0.8 %; Hematocrit (blood only) 36.5 % (37-47); Hemoglobin 12.2 g/dL (12.0-16.0); Immature Granulocytes # (auto) 0.02 K/uL (0.00-0.02); Immature Granulocytes % (auto) 0.2 %; Lymphocytes # (auto) 1.33 K/uL (1.2-3.4); Lymphocytes % (auto) 16.1 %; Mean Corpuscular Hgb Conc 33.4 g/dL (32-36); Mean Corpuscular Volume 89.9 fL (80-100); Mean Platelet Volume 10.6 fL (7.4-10.4); Monocytes # (auto) 0.83 K/uL (0.11-0.59); Neutrophils # (auto) 6.02 K/uL (1.4-6.5); Neutrophils % (auto) 72.8 %; Platelet Count 240 K/uL (130-400); RDW Standard Deviation 42.9 fL (36.4-46.3); Red Blood Count 4.06 M/uL (4.2-5.4); White Blood Count 8.28 K/uL (4.8-10.8)
[2018-12-20 06:02] LABS: Albumin Level 3.3 gm/dl (3.4-5.0); BUN Creatinine Ratio 21.8 (10-20); Calcium 8.2 mg/dl (8.5-10.1); Creatinine Clr Calc Pharmacy 64.2 ml/min; Est GFR (African American) 70.1; Est GFR (Non-African American) 60.5; Potassium 3.7 mmol/L (3.5-5.1)
[2018-12-20 06:05] LABS: Bilirubin,Total 0.7 mg/dl (0.2-1); Globulin 3.4 gm/dl (2.5-4.0); Phosphorus 3.7 mg/dl (2.5-4.9); Total Protein 6.7 gm/dl (6.4-8.2)
[2018-12-20 06:45] LABS: Estimated Average Glucose 151 mg/dl; Hemoglobin A1C 6.9 % (4.5-5.6)
--- NOTE | 2018-12-20 07:02 | Discharge Summary ---
PRINCIPAL DIAGNOSIS: History of ductal carcinoma in situ of the right breast. PROCEDURE: The patient is status post left breast mastectomy yesterday. HISTORY OF PRESENT ILLNESS: The patient is a 78-year-old female with a history of right breast DCIS, status post right mastectomy. She preferred a left mastectomy as a prophylactic measure. HOSPITAL COURSE: She was brought into the hospital on 12/19/2018 where she underwent left mastectomy, which she tolerated very well and is felt stable for discharge today to be followed in the surgical clinic next week. She does have a drain in place.
[2018-12-20] MEDS ORDERED: LEVOTHYROXINE SODIUM 75 MCG TABLET PO SCH (07:30)
[2018-12-20] MEDS ORDERED: hydroCHLOROthiazide 25 MG TAB PO SCH (09:00)
[2018-12-20] MEDS ORDERED: ANASTROZOLE 1 MG TAB PO SCH (09:00)
[2018-12-20] MEDS: INSULIN ASPART 100 UNITS/ML 3 ML PEN SC SCH (09:08)
--- NOTE | 2018-12-20 09:52 | Anesthesiology Progress Note ---
Date of Service December 20, 2018 Anesthesia Post Procedure Vital Signs Vital Signs: Temp Pulse Resp BP Pulse Ox 12/20/18 06:49 36.8 C 71 18 133/80 90 12/20/18 02:25 36.8 C 74 20 139/84 90 12/19/18 22:35 36.5 C 81 16 126/62 92 12/19/18 19:08 37.1 C 85 16 113/65 92 12/19/18 15:06 37.1 C 76 16 128/76 92 12/19/18 13:56 69 18 126/75 100 12/19/18 13:54 74 18 129/75 94 12/19/18 12:54 73 18 143/77 H 94 12/19/18 11:53 66 18 150/88 H 94 12/19/18 11:22 36.5 C 63 18 158/83 H 94 12/19/18 10:55 36.6 C 70 14 154/89 H 94 12/19/18 10:35 71 16 144/76 H 98 12/19/18 10:25 72 16 151/80 H 98 12/19/18 10:15 71 16 144/75 H 98 12/19/18 10:07 36.1 C L 75 16 150/76 H 98 Pain Intensity Right Chest: Pain Intensity: 0 Notes Mental Status: alert / awake / arousable and participated in evaluation Patient Amnestic to Procedure: Yes Nausea / Vomiting: see Notes below Pain: adequately controlled Airway Patency, RR, SpO2: stable & adequate BP & HR: stable & adequate Hydration State: stable & adequate Anesthetic Complications: no major complications apparent and Pt Satisfied with anesthetic care
== END 2018-12-20 11:03 | disposition home health service (06) | DRG 583 ==
LOC: ASU 06:48 → 3W 10:15

== ENCOUNTER 2024-08-24 10:23 | Observation (INO) ==
--- NOTE | 2024-08-24 11:10 | XRay Report ---
XR chest 1V portable HISTORY: 84 years-old Female Chest pain, nonspecific COMPARISON: 11/10/2019 TECHNIQUE: AP view of the chest FINDINGS: Calcified granuloma in the right mid lung is unchanged. Cardiac silhouette is enlarged. Mild chronic interstitial coarsening. Subsegmental bibasilar atelectasis. No pneumothorax, pleural effusion or lob ar airspace consolidation. Unchanged sclerotic focus of the left humeral head which is favored to be benign. Bones appear grossly intact. IMPRESSION: 1. Cardiomegaly without acute processes of the chest. 2. Calcified granuloma of the right upper lobe redemonstrated. ACT 112: Negative or not required by law. The above report was generated using voice recognition software. It may contain grammatical, syntax o r spelling errors. Electronically signed by: Misbah Rod M.D. 08/24/2024 11:08 AM
[2024-08-24 11:16] LABS: Basophils # (auto) 0.07 K/uL (0.00-0.20); Basophils % (auto) 1.1 %; Eosinophils # (auto) 0.09 K/uL (0.00-0.50); Eosinophils % (auto) 1.4 %; Hematocrit (blood only) 42.3 % (37.0-47.0); Hemoglobin 14.1 g/dl (12.0-16.0); Immature Granulocytes # (auto) 0.01 K/uL (0.01-0.20); Immature Granulocytes % (auto) 0.2 %; Lymphocytes % (auto) 21.1 %; Mean Corpuscular Hemoglobin 30.3 pg (25.0-34.0); Mean Corpuscular Hgb Conc 33.3 g/dL (32.0-36.0); Mean Corpuscular Volume 90.8 fL (80.0-100.0); Mean Platelet Volume 10.7 fL (9.4-12.4); Monocytes # (auto) 0.59 K/uL (0.11-0.59); Monocytes % (auto) 8.9 %; Neutrophils # (auto) 4.47 K/uL (1.40-6.50); Neutrophils % (auto) 67.3 %; Platelet Count 313 K/uL (130-400); RDW Coefficient of Variation 13.2 % (11.5-14.5); RDW Standard Deviation 43.8 fL (36.4-46.3); Red Blood Count 4.66 M/uL (4.20-5.40); White Blood Count 6.63 K/ul (4.8-10.8)
[2024-08-24 11:38] LABS: Alanine Aminotransferase 15 U/L (7-52); Albumin Globulin Ratio 1.4 (0.9-2); Albumin Level 4.4 gm/dl (3.4-5.0); Alkaline Phosphatase 59 U/L (34-104); Anion Gap 9 (3-11); Aspartate Aminotransferase 19 U/L (13-39); BUN Creatinine Ratio 23.5 (10-20); Bilirubin,Total 0.5 mg/dl (0.2-1.0); Blood Urea Nitrogen 23 mg/dl (6-23); Calcium 10.1 mg/dl (8.6-10.3); Carbon Dioxide 28 mmol/L (21-32); Chloride 100 mmol/L (98-107); Globulin 3.2 gm/dl (2.5-4.0); Glucose 135 mg/dl (70-99(Fasting)); Sodium 137 mmol/L (136-145); Total Protein 7.6 gm/dl (6.0-8.3)
--- NOTE | 2024-08-24 11:38 | Emergency Department Note ---
Impression & Plan Atrial fibrillation, new onset, Hypoxia ED Provider Note NAME: JEANNA DILLON AGE: 84 SEX: F : 1940 ARRIVES VIA: Walk-In INFORMANT: Patient, ED PROVIDER(S): Kevin Maharaj MD CHIEF COMPLAINT: A-fib HPI: This is a 84-year-old female sent for A-fib. Patient states that she has had increasing exertional dyspnea for the past 1 week with more fatigue for the past few months. She notes that she has no chest pain or shortness of breath. She does note she went to her primary care physician for regular checkup we noted that she was in A-fib with a heart fast heart rate and high blood pressure. Sent here for further evaluation. No recent fever, chills, nausea, vomiting. She is not feel palpitations in her chest. ROS: See above HPI for pertinent positives & negatives. A total of 10 systems reviewed and were otherwise negative. PAST MEDICAL HISTORY: See Below PAST SURGICAL HISTORY: See Below FAMILY HISTORY: See Below SOCIAL HISTORY: See Below HOME MEDICATIONS: See Below ALLERGIES: See Below VITALS: See Below PHYSICAL EXAMINATION: General: resting comfortably in no acute distress Head: Normocephalic and atraumatic Eyes: Normal inspection, extraocular muscles intact Ear, nose, throat: Normal external exam Neck: Normal range of motion Respiratory: lungs clear to auscultation bilaterally Cardiovascular: Irregular irregular rate/rhythm, no murmur GI: soft, nontender, no guarding or rebound Extremities: nontender, moves all extremities Neuro: The patient awake and alert, appropriately conversive, no focal deficits, symmetric faces Skin: Warm, dry, and intact MEDICAL DECISION MAKING: This is an 84-year-old female presenting for atrial fibrillation per patient history of diabetes, hypertension, hypercholesterolemia. Currently denies any chest pain or pleurisy. -[id number] elevated at 5. Patient will require anticoagulation at this time. Will attempt to control rates with IV metoprolol. -Patient given IV metoprolol with moderate proved in symptoms. Her heart rate is now between 90 and 115. Will give oral metoprolol as well. -Patient meant to be hypoxic by nurse while awake down to 89%. -Chest Xray independently interpreted by me showing cardiomegaly, no pneumothorax, focal opacity, or pleural effusions. -Patient has intermittent episodes of A-fib with RVR as well as hypoxia. Will admit for further evaluation and workup at this time patient's new onset A-fib Differential diagnosis: A-fib, ACS, pneumonia, PE ER treatment provided: See below Independent History obtained from: Diagnostics interpreted by me: ECG: ECG independently interpreted by me with atrial fibrillation with RVR at a rate of 118, normal axis incomplete right bundle branch block, normal QTc, no ST segment elevations consistent with STEMI criteria none Cardiac Monitoring: An order was placed for continuous cardiac monitoring. The monitor shows a rate of 101 with atrial fibrillation rhythm. Laboratory studies: As stated above and show below. Imaging studies: See below. Past Med/Surg History Problem List (Updated 08/25/24 @ 12:05 by Kevin Maharaj MD) Hypoxia (Acute) Atrial fibrillation, new onset (Acute) New onset a-fib Rhus dermatitis Hypertension (Chronic) Diabetes mellitus, type 2 (Chronic) Hyperlipidemia (Chronic) Hypothyroidism (Chronic) Iron deficiency anemia Osteoporosis History of breast cancer (Chronic) 2018 treated surgically S/P mastectomy (Chronic) right. 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) Osteoarthritis (Chronic) Obesity (Chronic) Adenomatous polyp of colon (Chronic) History of colon polyps Medical History Rhus dermatitis Osteoporosis Iron deficiency anemia TIA (transient ischemic attack) Varicose veins of both lower extremities Adenomatous polyp of colon History of breast cancer Hypothyroidism Hyperlipidemia Hypertension Obesity Osteoarthritis Diabetes mellitus, type 2 Surgical History History of pterygium excision H/O blepharoplasty S/P tubal ligation H/O colonoscopy H/O hand surgery History of lumpectomy H/O breast biopsy History of cataract surgery History of total hip arthroplasty Family History Brother Diabetes Factor 5 Leiden mutation, heterozygous Stroke Sister Coronary heart disease Factor V deficiency Lung cancer Hypertension Father Myocardial infarction Aunt Bone cancer AA (aortic aneurysm) Breast cancer Mother Stroke Other Family hx colonic polyps No family history of adverse response to anesthesia Denies family history of Ovarian cancer Prostate cancer Colorectal cancer Colonic polyp Social History Smoking Status: Never smoker Second Hand Exposure: Yes (IN OFFICE DURING WORKING DAYS); Do You Dip or Chew Tobacco: No; Hx Alcohol Use: No Hx Substance Use: No Preferred Language: Italian Communication Ability: Effective Visual Impairment: Partially Limited Hearing Ability: Normal Surgery Technician Required: No Beliefs That Will Affect Care: None marital status: Current Living Situation: Spouse Current Living Situation Comment: Lives at [facility] current occupational status: retired How many Children do You have: 2 Feels Safe at Home: Yes Safety Concerns: Feels Safe At This Time Childhood Exposure to Second-Hand Smoke: Yes Diet: diabetic, low salt and regular Diet Comment: Low salt and sugar caffeine: Yes (coffee 1 cup) during the past year weight has: remained stable Dental Care, Regularly: Yes Physical Activity Frequency: 3-4 Times per Week Physical Activity Frequency Comment: stretching and walking Seatbelt Use: always Sunscreen Use: Yes Do you think of yourself as: straight/heterosexual Gender Identity: Female Assistive Devices: Contacts Allergies Allergies Allergy/AdvReac Type Severity Reaction Status Date / Time adhesive Allergy Intermediate rash Verified 08/24/24 08:21 itchy blister poison jorge extract Allergy Verified 08/24/24 08:21 Home Meds Home Medications Medication Instructions Recorded Confirmed cholecalciferol (vitamin D3) 50 1 tab PO 1200 06/23/18 08/24/24 mcg (2,000 unit) tablet (Vitamin D3) cinnamon bark 500 mg capsule 1 cap PO 1200 06/23/18 08/24/24 (Cinnamon) coenzyme Q10 100 mg capsule (Co 100 mg PO PM 06/23/18 08/24/24 Q-10) cyanocobalamin (vitamin B-12) 1,000 mcg PO 1200 06/23/18 08/24/24 1,000 mcg tablet (Vitamin B-12) lccsummtwrca-srimhghf-dkklzt 1 tab PO 1200 06/23/18 08/24/24 tablet (Multivitamin 50 Plus tablet) omega-3 fatty acids 1,000 mg 2,000 mg PO 1200 06/23/18 08/24/24 capsule vit C 50 mg-E 15 unit-zinc cit 4.5 1 tab PO PM 12/08/18 08/24/24 mg-lutein 2.5 mg-zeaxan chew tablet (OcuvNotifix[facility]) calcium carbonate (Calcium 500) 500 mg PO 1200 08/06/20 08/24/24 oreganol 1 cap PO 1200 08/06/20 08/24/24 pyridoxine (vitamin B6) 100 mg 100 mg PO 1200 08/06/20 08/24/24 tablet (Vitamin B-6) turmeric 400 mg capsule 400 mg PO 1200 11/13/20 08/24/24 denosumab 60 mg/mL subcutaneous 60 mg subcut DIRECTED 10/07/22 08/24/24 syringe (Prolia) magnesium 1 tab PO DAILY 05/24/24 08/24/24 amoxicillin 500 mg capsule 500 mg PO UD PRN dental procedures 08/24/24 08/24/24 metformin 500 mg tablet,extended 500 mg PO UD 08/24/24 08/24/24 release 24 hr Previous Rx's Medication Instructions Recorded hydrochlorothiazide 12.5 mg capsule 12.5 mg PO QAM #90 caps 11/16/23 rosuvastatin 20 mg tablet 20 mg PO DAILY #90 tabs 11/16/23 levothyroxine 75 mcg tablet 75 mcg PO QAM #90 tabs 06/13/24 (Synthroid) lisinopril 2.5 mg tablet 2.5 mg PO DAILY #90 tabs 08/10/24 empagliflozin 10 mg tablet 10 mg PO DAILY #90 tabs 08/11/24 (Jardiance) Results & Data (ED) Vital Signs Vital Signs - 24 hr 08/24/24 12:11 08/24/24 12:33 08/24/24 12:38 Pulse Rate 96 H 94 H Pulse Rate [Apical] Pulse Rate from SpO2 Sensor 94 H Respiratory Rate 21 Blood Pressure 138/105 H Blood Pressure [Left Arm] Blood Pressure Mean 116 Blood Pressure Mean [Left Arm] Pulse Oximetry 89 L 95 Oxygen Delivery Method Room Air Room Air Oxygen Flow Rate Oxygen Flow Rate - Titration 2 Pulse Oximetry Post Tiitration 94 08/24/24 13:30 08/24/24 14:03 08/24/24 14:38 Pulse Rate 101 H 108 H 102 H Pulse Rate [Apical] Pulse Rate from SpO2 Sensor 99 H 98 H Respiratory Rate 19 22 Blood Pressure 146/96 H 160/120 H Blood Pressure [Left Arm] Blood Pressure Mean 112 133 Blood Pressure Mean [Left Arm] Pulse Oximetry 95 95 Oxygen Delivery Method Room Air Room Air Oxygen Flow Rate Oxygen Flow Rate - Titration Pulse Oximetry Post Tiitration 08/24/24 14:41 08/24/24 15:45 08/24/24 16:03 Pulse Rate 131 H Pulse Rate [Apical] 84 Pulse Rate from SpO2 Sensor Respiratory Rate 20 24 Blood Pressure Blood Pressure [Left Arm] 156/100 H Blood Pressure Mean Blood Pressure Mean [Left Arm] 118 Pulse Oximetry 96 98 95 Oxygen Delivery Method Nasal Cannula Room Air Room Air Oxygen Flow Rate 2 Oxygen Flow Rate - Titration 0 Pulse Oximetry Post Tiitration 94 Laboratory Data 08/25/24 06:55 08/25/24 06:55 Lab Results 08/24/24 Range/Units 10:40 WBC 6.63 (4.8-10.8) K/ul RBC 4.66 (4.20-5.40) M/uL Hgb 14.1 (12.0-16.0) g/dl Hct 42.3 (37.0-47.0) % MCV 90.8 (80.0-100.0) fL MCH 30.3 (25.0-34.0) pg MCHC 33.3 (32.0-36.0) g/dL RDW Std Deviation 43.8 (36.4-46.3) fL RDW Coeff of Radha 13.2 (11.5-14.5) % Plt Count 313 (130-400) K/uL MPV 10.7 (9.4-12.4) fL Immature Gran % (Auto) 0.2 % Neut % (Auto) 67.3 % Lymph % (Auto) 21.1 % Owen % (Auto) 8.9 % Eos % (Auto) 1.4 % Baso % (Auto) 1.1 % Neut # (Auto) 4.47 (1.40-6.50) K/uL Lymph # (Auto) 1.40 (1.20-3.40) K/uL Owen # (Auto) 0.59 (0.11-0.59) K/uL Eos # (Auto) 0.09 (0.00-0.50) K/uL Baso # (Auto) 0.07 (0.00-0.20) K/uL Immature Gran # (Auto) 0.01 (0.01-0.20) K/uL PT 10.7 (9.0-12.0) Seconds INR 1.0 (0.9-1.1) APTT 27 (21-31) Seconds PTT Ratio 1.0 Sodium 137 (136-145) mmol/L Potassium 4.0 (3.5-5.1) mmol/L Chloride 100 (98-107) mmol/L Carbon Dioxide 28 (21-32) mmol/L Anion Gap 9 (3-11) BUN 23 (6-23) mg/dl Creatinine 0.98 (0.6-1.2) mg/dl Est Cr Clr Drug Dosing Not Reportable eGFR 57.63 BUN/Creatinine Ratio 23.5 H (10-20) Glucose 135 H (70-99(Fasting)) mg/dl Calcium 10.1 (8.6-10.3) mg/dl Magnesium 2.0 (1.7-2.4) mg/dl Total Bilirubin 0.5 (0.2-1.0) mg/dl AST 19 (13-39) U/L ALT 15 (7-52) U/L Alkaline Phosphatase 59 (34-104) U/L Troponin I High Sens 6.2 (0-14) pg/ml Total Protein 7.6 (6.0-8.3) gm/dl Albumin 4.4 (3.4-5.0) gm/dl Globulin 3.2 (2.5-4.0) gm/dl Albumin/Globulin Ratio 1.4 (0.9-2) TSH 2.913 (0.300-4.500) uIu/ml Administered Medications Apixaban (Apixaban 5 Mg Tablet) 5 mg PO BID ESTRELLITA Stop: 09/23/24 20:59 Last Admin: 08/25/24 08:10 Dose: 5 mg Documented By: [facility] Admin: 08/24/24 19:53 Dose: 5 mg Documented By: [facility] Insulin Aspart (Insulin Aspart Per Unit Charge) 0 units SC ACHS ESTRELLITA Stop: 09/23/24 16:29 Last Admin: 08/25/24 08:09 Dose: Not Given Documented By: [facility] Admin: 08/24/24 19:52 Dose: Not Given Documented By: [facility] Admin: 08/24/24 17:50 Dose: Not Given Documented By: [facility] Levothyroxine Sodium (Levothyroxine Sodium 75 Mcg Tablet) 75 mcg PO DAILYBB ESTRELLITA Stop: 09/24/24 08:59 Last Admin: 08/25/24 08:10 Dose: 75 mcg Documented By: Balwinder Lisinopril (Lisinopril 2.5 Mg Tab) 2.5 mg PO DAILY ESTRELLITA Stop: 09/24/24 08:59 Last Admin: 08/25/24 08:10 Dose: 2.5 mg Documented By: Balwinder Metformin HCl (Metformin Hcl Er 500 Mg Tabcr) 500 mg PO QPM ESTRELLITA Stop: 09/23/24 20:59 Last Admin: 08/24/24 19:51 Dose: 500 mg Documented By: [facility] Metformin HCl (Metformin Hcl Er 500 Mg Tabcr) 1,000 mg PO QAM [facility] Stop: 09/24/24 08:59 Last Admin: 08/25/24 09:42 Dose: 1,000 mg Documented By: Balwinder Metoprolol Tartrate (Metoprolol Tartrate 25 Mg Tab) 12.5 mg PO BID [facility] Stop: 09/23/24 20:59 Last Admin: 08/25/24 08:10 Dose: 12.5 mg Documented By: Balwinder Admin: 08/24/24 20:28 Dose: 12.5 mg Documented By: [facility] Rosuvastatin Calcium (Rosuvastatin Calcium 20 Mg Tab) 20 mg PO DAILY [facility] Stop: 09/24/24 08:59 Last Admin: 08/25/24 08:10 Dose: 20 mg Documented By: Balwinder Discontinued Medications Metoprolol Succinate (Metoprolol Succ 25mg Ext Rel Tab) [facility] Stop: 09/23/24 14:59 Last Admin: 08/24/24 15:43 Dose: 25 mg Documented By: Metoprolol Tartrate (Metoprolol Tartrate 1 Mg/Ml Vial) 5 mg IV NOW STA Stop: 08/24/24 11:31 Last Admin: 08/24/24 11:43 Dose: 5 mg Documented By: [facility] Radiologist's Impression: Chest X-Ray 08/24/24 10:49 XR chest 1V portable HISTORY: 84 years-old Female Chest pain, nonspecific COMPARISON: 11/10/2019 TECHNIQUE: AP view of the chest FINDINGS: Calcified granuloma in the right mid lung is unchanged. Cardiac silhouette is enlarged. Mild chronic interstitial coarsening. Subsegmental bibasilar atelectasis. No pneumothorax, pleural effusion or lobar airspace consolidation. Unchanged sclerotic focus of the left humeral head which is favored to be benign. Bones appear grossly intact. IMPRESSION: 1. Cardiomegaly without acute processes of the chest. 2. Calcified granuloma of the right upper lobe redemonstrated. ACT 112: Negative or not required by law. The above report was generated using voice recognition software. It may contain grammatical, syntax or spelling errors. Electronically signed by: Misbah Rod M.D. 08/24/2024 11:08 AM Discharge Plan Visit Data Chief Complaint: Cardiac Assessment Stated Complaint: REF BY IRENE, DEEPIKA 02, HEART PROBLEM, ABN EKG ED Provider: Kevin Maharaj Discharge Problem: Atrial fibrillation, new onset, Hypoxia Patient Disposition: Admitted As Inpatient Discharge Instructions Interventions: ED Discharge Assessment Last Done: 08/24/24 17:52
[2024-08-24 11:42] LABS: Partial Thromboplastin Time 27 Seconds (21-31); Prothrombin Time 10.7 Seconds (9.0-12.0)
[2024-08-24] MEDS: METOPROLOL TARTRATE 1 MG/ML VIAL IV STA (11:43)
[2024-08-24 11:44] LABS: Troponin I High Sensitivity 6.2 pg/ml (0-14)
--- NOTE | 2024-08-24 12:44 | Electrocardiogram Report ---
Test Reason : Blood Pressure : */* mmHG Vent. Rate : 118 BPM Atrial Rate : * BPM P-R Int : * ms QRS Dur : 104 ms QT Int : 338 ms P-R-T Axes : * 74 13 degrees QTcB Int : 473 ms Atrial fibrillation with rapid ventricular response Incomplete right bundle branch block Nonspecific T wave abnormality Abnormal ECG When compared with ECG of 08-Aug-2019 11:33, Atrial fibrillation has replaced Sinus rhythm Vent. rate has increased by 49 bpm Nonspecific T wave abnormality now evident in Inferior leads Confirmed by Poli Castañeda ([id number]) on 08/24/2024 12:44:00 PM Referred By: Confirmed By: Poli Castañeda
[2024-08-24] MEDS: METOPROLOL SUCC 25MG EXT REL TAB PO SCH (15:43)
--- NOTE | 2024-08-24 15:46 | History & Physical Report ---
Date of Service August 24, 2024 Assessment & Plan (1) New onset a-fib: Plan: New onset A-fib Inadequate rate control with p.o. and IV x 1 metoprolol initially reported as transiently hypoxic. At bedside patient is ambulating from the bathroom SpO2 94% on room air. She has no pleuritic or inspiratory pain. History of leg swelling. Does have family history of clots in multiple family members. Chest x-ray without evidence of rate related failure Echo is pending Last TSH within normal limits 05/16/2024. Repeat pending EKG A-fib with RVR. Incomplete right bundle branch block. No territorial ST segment changes, nonspecific inferior T wave changes. Risks/benefits of anticoagulation discussed. Patient agreeable to initiation of Eliquis. No history of bleeding problems, does have a history of iron deficiency anemia for which she had a colonoscopy with polyps removed denies GI bleed/NSAID use Metoprolol 25 mg twice daily started. MTP IV 5 mg IV every 6 hours as needed for rate greater than 130. Magnesium pending optimize @ 2.0. K is 4.0 No hypotension. She is not hemodynamically unstable at bedside evaluation TSH is pending. No history of sleep studies, feels rested in the morning suggestive of sleep apnea. She does not drink alcohol. (2) Diabetes mellitus, type 2: Plan: Type II DM Metformin, Jardiance continued, conservative SSI added if needed Renal function is at baseline BSG 135 adequately controlled. If signs of developing metabolic acidosis were adequate control hold metformin and transition to basal bolus (3) Hypertension: Plan: Hypertension Lisinopril/HCTZ continued (4) Hyperlipidemia: Plan Chronic stable issues: Hyperlipidemia: Statin continued Past history of iron deficiency anemia: EGD 10/2022 with no evidence of ulcers, normal stomach and esophagus. Colonoscopy 2020: 6 mm sessile polyp, nonbleeding internal hemorrhoids. DVT prophylaxis: Anticoagulated Diet: DM 2, heart healthy Disposition: PCU for A-fib RVR CODE STATUS: Full code History of Present Illness Primary Care Provider: Jennifer Dallas DO Mattie is an 84-year-old female with a past medical history of type II DM, hyperlipidemia, osteoporosis, breast cancer s/p mastectomy who was referred to the ER for new onset A-fib with RVR. Patient was given oral and IV metoprolol however remained tachycardic greater than 115 in the ER and had transient hypoxia although no shortness of breath and no dyspnea. Chest x-ray does not show any evidence of rate related failure. No known provoking feature. Patient does have tachycardia and provoked A-fib with new hypoxia in the absence of failure. She is not excluded by PERC. D-dimer pending. Seen at the bedside. She denies past history of chest pain chest pressure, heart attack, DVT, GI bleed. She reports she was at her PCP for routine follow- up when they noticed her heart rate was fast. She does acknowledge that she has had some intermittent palpitations in the last 3 weeks but she would not of come to the hospital at least checked as she did not findings particularly bothersome. No dyspnea, no orthopnea, no leg swelling. She does not use tobacco products or alcohol. She notes she wakes up suddenly and is not sure if this is sleep apnea, but has never had a sleep study and wakes up feeling rested in the mornings. She has multiple family members with blood clots but she has not had any leg swelling, no inspiratory pain, does not feel shortness of breath and she herself has never had a blood clot. She is walking back from the bathroom and ambulating in the room with SpO2 94-95%. Medical History: Reviewed Medications: Reviewed Surgical History: Reviewed Family history: Reviewed Allergies: Reviewed Social History: No tobacco or etoh Code Status: Full Code Allergies Allergy/AdvReac Type Severity Reaction Status Date / Time adhesive Allergy Intermediate rash Verified 08/24/24 08:21 itchy blister poison jorge extract Allergy Verified 08/24/24 08:21 Home Medications Medication Instructions Recorded Confirmed Type cholecalciferol (vitamin D3) 50 1 tab PO 1200 06/23/18 08/24/24 History mcg (2,000 unit) tablet (Vitamin D3) cinnamon bark 500 mg capsule 1 cap PO 1200 06/23/18 08/24/24 History (Cinnamon) coenzyme Q10 100 mg capsule (Co 100 mg PO PM 06/23/18 08/24/24 History Q-10) cyanocobalamin (vitamin B-12) 1,000 mcg PO 1200 06/23/18 08/24/24 History 1,000 mcg tablet (Vitamin B-12) [id number]-daciiudr-[id number] 1 tab PO 1200 06/23/18 08/24/24 History tablet (Multivitamin 50 Plus tablet) omega-3 fatty acids 1,000 mg 2,000 mg PO 1200 06/23/18 08/24/24 History capsule vit C 50 mg-E 15 unit-zinc cit 4.5 1 tab PO PM 12/08/18 08/24/24 History mg-lutein 2.5 mg-zeaxan chew tablet ([email or web address]) calcium carbonate (Calcium 500) 500 mg PO 1200 08/06/20 08/24/24 History oreganol 1 cap PO 1200 08/06/20 08/24/24 History pyridoxine (vitamin B6) 100 mg 100 mg PO 1200 08/06/20 08/24/24 History tablet (Vitamin B-6) turmeric 400 mg capsule 400 mg PO 1200 11/13/20 08/24/24 History denosumab 60 mg/mL subcutaneous 60 mg subcut DIRECTED 10/07/22 08/24/24 History syringe (Prolia) hydrochlorothiazide 12.5 mg capsule 12.5 mg PO QAM #90 caps 11/16/23 08/24/24 Rx rosuvastatin 20 mg tablet 20 mg PO DAILY #90 tabs 11/16/23 08/24/24 Rx magnesium 1 tab PO DAILY 05/24/24 08/24/24 History levothyroxine 75 mcg tablet 75 mcg PO QAM #90 tabs 06/13/24 08/24/24 Rx (Synthroid) lisinopril 2.5 mg tablet 2.5 mg PO DAILY #90 tabs 08/10/24 08/24/24 Rx empagliflozin 10 mg tablet 10 mg PO DAILY #90 tabs 08/11/24 08/24/24 Rx (Jardiance) amoxicillin 500 mg capsule 500 mg PO UD PRN dental procedures 08/24/24 08/24/24 History metformin 500 mg tablet,extended 500 mg PO UD 08/24/24 08/24/24 History release 24 hr Past Med/Surg History Problem List (Updated 08/24/24 @ 16:19 by Luis Avalos MD) New onset a-fib Rhus dermatitis Hypertension (Chronic) Diabetes mellitus, type 2 (Chronic) Hyperlipidemia (Chronic) Hypothyroidism (Chronic) Iron deficiency anemia Osteoporosis History of breast cancer (Chronic) 2018 treated surgically S/P mastectomy (Chronic) right. 06/27/2018 [id number]-9/4/19 TIA (transient ischemic attack) Varicose veins of both lower extremities (Chronic) Osteoarthritis (Chronic) Obesity (Chronic) Adenomatous polyp of colon (Chronic) History of colon polyps Medical History Rhus dermatitis Osteoporosis Iron deficiency anemia TIA (transient ischemic attack) Varicose veins of both lower extremities Adenomatous polyp of colon History of breast cancer Hypothyroidism Hyperlipidemia Hypertension Obesity Osteoarthritis Diabetes mellitus, type 2 Surgical History History of pterygium excision H/O blepharoplasty S/P tubal ligation H/O colonoscopy H/O hand surgery History of lumpectomy H/O breast biopsy History of cataract surgery History of total hip arthroplasty Family History Brother Diabetes Factor 5 Leiden mutation, heterozygous Stroke Sister Coronary heart disease Factor V deficiency Lung cancer Hypertension Father Myocardial infarction Aunt Bone cancer AA (aortic aneurysm) Breast cancer Mother Stroke Other Family hx colonic polyps No family history of adverse response to anesthesia Denies family history of Ovarian cancer Prostate cancer Colorectal cancer Colonic polyp Social History Smoking Status: Never smoker Second Hand Exposure: Yes (IN OFFICE DURING WORKING DAYS); Do You Dip or Chew Tobacco: No; Hx Alcohol Use: No Hx Substance Use: No Preferred Language: Ukrainian Communication Ability: Effective Visual Impairment: Partially Limited Hearing Ability: Normal 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 Beliefs That Will Affect Care: None marital status: Current Living Situation: Spouse Current Living Situation Comment: Lives at [facility] current occupational status: retired How many Children do You have: 2 Feels Safe at Home: Yes Childhood Exposure to Second-Hand Smoke: Yes Diet: diabetic, low salt and regular Diet Comment: Low salt and sugar caffeine: Yes (coffee 1 cup) during the past year weight has: remained stable Dental Care, Regularly: Yes Physical Activity Frequency: 3-4 Times per Week Physical Activity Frequency Comment: stretching and walking Seatbelt Use: always Sunscreen Use: Yes Do you think of yourself as: straight/heterosexual Gender Identity: Female Assistive Devices: Contacts Physical Exam Physical Exam: General: A&Ox3. NAD. Cooperative. HEENT: Atraumatic, normocephalic. Vision and hearing grossly intact Pulm: CTAB A&P. -wheezes, -rales, -rhonchi. Symmetrical chest rise. No increased work of breathing. No respiratory distress. Cardiac: irir, -mrg. Radial pulses intact and symmetrical. Abdominal: Nontender, nondistended, soft. BS present. Results & Data Results & Data Vital Signs (Past 12 Hours) Vital Signs Temp Pulse Resp BP Pulse Ox O2 Del Method O2 Flow Rate 08/24/24 14:41 96 Nasal Cannula 2 08/24/24 14:38 102 H 08/24/24 14:03 108 H 22 160/120 H 95 Room Air 08/24/24 13:30 101 H 19 146/96 H 95 Room Air 08/24/24 12:38 94 H 08/24/24 12:33 96 H 21 138/105 H 95 Room Air 08/24/24 12:11 89 L Room Air 08/24/24 11:51 106 H 19 90 Room Air 08/24/24 11:43 118 H 08/24/24 11:08 120 H 08/24/24 10:49 89 20 90 Room Air 08/24/24 10:49 Room Air 08/24/24 10:29 36.8 C 122 H 16 130/91 97 Room Air PG Care Time/CCT Total # of Minutes Spent Total Time Spent with Patient: Total time spent is greater than 50% in coordination of care (as documented) at patient's floor/unit and/or counseling patient: Coding Level of Care Code 59676 INT INP/OBS CARE 3/75MIN Diagnoses New onset a-fib I48.91 Type 2 diabetes mellitus without complication, without long-term current use of insulin E11.9 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 use: without usp use Diabetes mellitus complication status: without complication Essential hypertension I10 Hypertension type: essential hypertension Hyperlipidemia, unspecified hyperlipidemia type E78.5 Hyperlipidemia type: unspecified (2) Diabetes mellitus, type 2 Diabetes mellitus usp insulin use: without usp use Diabetes mellitus complication status: without complication Qualified Code(s): E11.9 - Type 2 diabetes mellitus without complications (3) Hypertension Hypertension type: essential hypertension Qualified Code(s): I10 - Essential (primary) hypertension (4) Hyperlipidemia Hyperlipidemia type: unspecified Qualified Code(s): E78.5 - Hyperlipidemia, unspecified
[2024-08-24] MEDS ORDERED: GLUCOSE 40% GEL 15 GM TUBE PO PRN (16:11)
[2024-08-24] MEDS ORDERED: DEXTROSE 50% 50 ML SYRINGE IV PRN (16:11)
[2024-08-24] MEDS ORDERED: METOPROLOL TARTRATE 1 MG/ML VIAL IV PRN (16:11)
[2024-08-24] MEDS ORDERED: GLUCOSE 10 TAB/TUBE PO PRN (16:11)
[2024-08-24] MEDS ORDERED: GLUCAGON FOR INJ 1 MG VIAL SQ PRN (16:11)
[2024-08-24] MEDS ORDERED: CARBOHYDRATES FOR HYPOGLYCEMIA PO PRN (16:11)
[2024-08-24 17:40] LABS: Thyroid Stimulating Hormone 2.913 uIu/ml (0.300-4.500)
[2024-08-24] MEDS: INSULIN ASPART PER UNIT CHARGE SC SCH (17:50)
[2024-08-24] MEDS ORDERED: ACETAMINOPHEN 325 MG TAB PO PRN (18:27)
[2024-08-24 18:36] VITALS: RESP 18
[2024-08-24] MEDS: metFORMIN HCL ER 500 MG TABCR PO SCH (19:51)
[2024-08-24] MEDS: APIXABAN 5 MG TABLET PO SCH (19:53)
[2024-08-24] MEDS: METOPROLOL TARTRATE 25 MG TAB PO SCH (20:28)
[2024-08-25 07:16] LABS: Basophils # (auto) 0.05 K/uL (0.00-0.20); Basophils % (auto) 0.8 %; Eosinophils # (auto) 0.09 K/uL (0.00-0.50); Eosinophils % (auto) 1.5 %; Hematocrit (blood only) 42.4 % (37.0-47.0); Immature Granulocytes # (auto) 0.02 K/uL (0.01-0.20); Immature Granulocytes % (auto) 0.3 %; Lymphocytes # (auto) 0.97 K/uL (1.20-3.40); Lymphocytes % (auto) 16.4 %; Mean Corpuscular Hemoglobin 29.6 pg (25.0-34.0); Mean Corpuscular Volume 89.6 fL (80.0-100.0); Mean Platelet Volume 10.4 fL (9.4-12.4); Monocytes # (auto) 0.53 K/uL (0.11-0.59); Monocytes % (auto) 8.9 %; Neutrophils # (auto) 4.27 K/uL (1.40-6.50); Neutrophils % (auto) 72.1 %; Platelet Count 304 K/uL (130-400); RDW Standard Deviation 42.8 fL (36.4-46.3); Red Blood Count 4.73 M/uL (4.20-5.40); White Blood Count 5.93 K/ul (4.8-10.8)
[2024-08-25 07:41] LABS: BUN Creatinine Ratio 24.4 (10-20); Calcium 9.3 mg/dl (8.6-10.3); Potassium 3.6 mmol/L (3.5-5.1)
[2024-08-25] MEDS: LEVOTHYROXINE SODIUM 75 MCG TABLET PO SCH (08:10)
[2024-08-25] MEDS: lisinopril 2.5 MG TAB PO SCH (08:10)
[2024-08-25] MEDS: ROSUVASTATIN CALCIUM 20 MG TAB PO SCH (08:10)
[2024-08-25] MEDS ORDERED: EMPAGLIFLOZIN 10 MG TAB PO SCH (09:00)
[2024-08-25] MEDS: metFORMIN HCL ER 500 MG TABCR PO SCH (09:42)
--- NOTE | 2024-08-25 09:53 | XCELERA ---
[id number]
[2024-08-25] MEDS ORDERED: METOPROLOL TARTRATE 25 MG TAB PO STA (13:15)
[2024-08-25] MEDS: METOPROLOL TARTRATE 25 MG TAB PO ONE (15:00)
--- NOTE | 2024-08-25 16:39 | Hospitalist Progress Note ---
Date of Service August 25, 2024 Assessment & Plan (1) New onset a-fib: Plan: Presented with increasing exertional dyspnea x 1 week and increased fatigue x few months. She was at her PCP who noted she was in A fib RVR and was referred to the ED New onset A-fib with RVR on admission - EKG also showing incomplete right bundle branch block. No territorial ST segment changes, nonspecific inferior T wave changes - CXR without evidence of rate related failure, TSH WNL, no signs or symptoms to suggest sleep apnea, does not drink alcohol - Echo revealed EF 55-60%, no regional wall motion abnormalities, mild mitral regurgitation - Continue Eliquis 5 mg BID started on admission - Rates are improved, but remain elevated in 100s > Metoprolol tartrate increased to 25 mg BID - monitor response - Metoprolol IV 5 mg IV every 6 hours as needed for rate greater than 130 If rates are controlled, anticipate discharge home 08/26 (2) Diabetes mellitus, type 2: Plan: Type II DM Metformin, Jardiance continued, conservative SSI added if needed Renal function is at baseline Plan Reviewed telemetry Adjusted metoprolol dosing Chronic stable issues: Hypertension: Continue lisinopril/HCTZ Hyperlipidemia: Statin continued Past history of iron deficiency anemia: EGD 10/2022 with no evidence of ulcers, normal stomach and esophagus. Colonoscopy 2020: 6 mm sessile polyp, nonbleeding internal hemorrhoids. DVT prophylaxis: Anticoagulated CODE STATUS: Full code Admission and Anticipated Discharge Date Admission Date: August 24, 2024 Subjective Patient seen and evaluated bedside. She notes her only complaint currently is feeling tired. She denies any palpitations, chest pain, shortness of breath, or lightheadedness. We discussed that her heart rate is improved but still remains elevated and we will make further adjustments to her metoprolol dosing. She denies any abnormal bleeding since starting Eliquis. No additional complaints or concerns at this time. Physical Exam Physical Exam: General: No acute distress, nondiaphoretic, well-developed, well-nourished. Skin: The skin was without rashes, erythema, edema, or bruising. Cardiac: Irregularly irregular in 100s, without murmurs gallops or rubs. Pulm: Clear to auscultation bilaterally without wheezes, rales or rhonchi. No respiratory distress. 94% on room air. Abdominal: Soft, nontender, nondistended. Bowel sounds present. Neuro: A&O x3. No focal neurological deficits. Results & Data Results & Data Vital Signs (Past 12 Hours) Vital Signs Temp Pulse Pulse Resp BP Pulse Ox O2 Del Method 08/25/24 15:41 105 H 08/25/24 12:28 98.1 F 105 H 18 121/81 94 Room Air 08/25/24 08:00 108 H 08/25/24 07:28 97.9 F 101 H 18 142/89 H 92 Room Air Laboratory Results Reviewed CBC Reviewed INFORMATION RESOURCES DIRECTOR Diagnostic Findings Reviewed echocardiogram Interpretation summary: Left ventricular systolic function is normal. No regional wall motion abnormalities noted. There is borderline concentric left ventricular hypertrophy. Left ventricular ejection fraction= 55-60%. There is mild mitral regurgitation. Compared with study of 05/27/2021, no significant change. 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
[2024-08-25] MEDS: METOPROLOL TARTRATE 25 MG TAB PO SCH (20:56)
[2024-08-26 06:18] LABS: Basophils # (auto) 0.07 K/uL (0.00-0.20); Basophils % (auto) 1.2 %; Eosinophils # (auto) 0.13 K/uL (0.00-0.50); Eosinophils % (auto) 2.3 %; Hemoglobin 14.2 g/dl (12.0-16.0); Immature Granulocytes # (auto) 0.01 K/uL (0.01-0.20); Immature Granulocytes % (auto) 0.2 %; Lymphocytes # (auto) 1.12 K/uL (1.20-3.40); Mean Corpuscular Hemoglobin 30.1 pg (25.0-34.0); Mean Corpuscular Volume 91.1 fL (80.0-100.0); Mean Platelet Volume 10.6 fL (9.4-12.4); Monocytes # (auto) 0.65 K/uL (0.11-0.59); Monocytes % (auto) 11.6 %; Neutrophils # (auto) 3.63 K/uL (1.40-6.50); Neutrophils % (auto) 64.7 %; Platelet Count 307 K/uL (130-400); RDW Coefficient of Variation 13.1 % (11.5-14.5); Red Blood Count 4.72 M/uL (4.20-5.40); White Blood Count 5.61 K/ul (4.8-10.8)
[2024-08-26 06:26] LABS: BUN Creatinine Ratio 20.8 (10-20); Calcium 9.3 mg/dl (8.6-10.3); Creatinine Clr Calc Pharmacy 48.3 ml/min; Potassium 3.8 mmol/L (3.5-5.1)
--- NOTE | 2024-08-26 07:55 | Hospitalist Progress Note ---
Date of Service August 26, 2024 Assessment & Plan (1) New onset a-fib: Plan: Presented with increasing exertional dyspnea x 1 week and increased fatigue x few months. She was at her PCP who noted she was in A fib RVR and was referred to the ED New onset A-fib with RVR on admission - EKG also showing incomplete right bundle branch block. No territorial ST segment changes, nonspecific inferior T wave changes TSH WNL, - Echo revealed EF 55-60%, no regional wall motion abnormalities, mild mitral regurgitation Eliquis 5 mg BID -> Metoprolol tartrate for rate control (2) Diabetes mellitus, type 2: Plan: Type II DM Metformin, Jardiance continued, conservative SSI added if needed Renal function is at baseline Plan Chronic stable issues: Hypertension: Continue lisinopril/HCTZ Hyperlipidemia: Statin continued Past history of iron deficiency anemia: EGD 10/2022 with no evidence of ulcers, normal stomach and esophagus. Colonoscopy 2020: 6 mm sessile polyp, nonbleeding internal hemorrhoids. DVT prophylaxis: Anticoagulated CODE STATUS: Full code Admission and Anticipated Discharge Date Admission Date: August 24, 2024 Results & Data Results & Data Vital Signs (Past 12 Hours) Vital Signs Temp Pulse Pulse Resp BP Pulse Ox O2 Del Method 08/26/24 07:24 100 H 08/26/24 04:02 98.2 F 102 H 18 130/97 95 Room Air 08/25/24 22:57 98.2 F 104 H 18 110/87 93 Room Air PG Care Time/CCT Total # of Minutes Spent Total Time Spent with Patient: Total time spent is greater than 50% in coordination of care (as documented) at patient's floor/unit and/or counseling patient: Coding Diagnoses New onset a-fib I48.91 Type 2 diabetes mellitus without complication, without long-term current use of insulin E11.9 Diabetes mellitus assisted insulin use: without assisted use Diabetes mellitus complication status: without complication (2) Diabetes mellitus, type 2 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
[2024-08-26 08:10] VITALS: TEMP 97.9; O2SAT 92
[2024-08-26] MEDS: METOPROLOL TARTRATE 50 MG TAB PO SCH (09:26)
[2024-08-26 11:20] VITALS: BP 98/71; PULSE 95
--- NOTE | 2024-08-26 14:52 | Discharge Summary ---
Discharge Summary Date of Service August 26, 2024 Principal Dx & Hospital Course #1 = Principal Diagnosis (1) New onset a-fib: Presented with increasing exertional dyspnea x 1 week and increased fatigue x few months. She was at her PCP who noted she was in A fib RVR and was referred to the ED New onset A-fib with RVR on admission - EKG also showing incomplete right bundle branch block. No territorial ST segment changes, nonspecific inferior T wave changes TSH WNL, - Echo revealed EF 55-60%, no regional wall motion abnormalities, mild mitral regurgitation Eliquis 5 mg BID -> Metoprolol tartrate for rate control, dose increased to 50 mg bid and bp 98/71 ambulated without symptoms, heart rate to 120's, adding low dose digoxin on dishcharge 0/125 mg daily, will need to arrange f/u [facility] cardiology (2) Diabetes mellitus, type 2: Type II DM Metformin, Jardiance continued, conservative SSI added if needed Renal function is at baseline Plan Chronic stable issues: Hypertension: Continue lisinopril will hold HCTZ given starting new meds for afib Hyperlipidemia: Statin continued Past history of iron deficiency anemia: EGD 10/2022 with no evidence of ulcers, normal stomach and esophagus. Colonoscopy 2020: 6 mm sessile polyp, nonbleeding internal hemorrhoids. CODE STATUS: Full code Notes For Next Care Provider needs cardiology follow up, and liklely digoxin level although low dose, could consider change metoprolol to succinate Admission HPI Per Admitting Provider Mattie is an 84-year-old female with a past medical history of type II DM, hyperlipidemia, osteoporosis, breast cancer s/p mastectomy who was referred to the ER for new onset A-fib with RVR. Patient was given oral and IV metoprolol however remained tachycardic greater than 115 in the ER and had transient hypoxia although no shortness of breath and no dyspnea. Chest x-ray does not show any evidence of rate related failure. No known provoking feature. Patient does have tachycardia and provoked A-fib with new hypoxia in the absence of failure. She is not excluded by [facility]. D-dimer pending. Seen at the bedside. She denies past history of chest pain chest pressure, heart attack, DVT, GI bleed. She reports she was at her PCP for routine follow- up when they noticed her heart rate was fast. She does acknowledge that she has had some intermittent palpitations in the last 3 weeks but she would not of come to the hospital at least checked as she did not findings particularly bothersome. No dyspnea, no orthopnea, no leg swelling. She does not use tobacco products or alcohol. She notes she wakes up suddenly and is not sure if this is sleep apnea, but has never had a sleep study and wakes up feeling rested in the mornings. She has multiple family members with blood clots but she has n ot had any leg swelling, no inspiratory pain, does not feel shortness of breath and she herself has never had a blood clot. She is walking back from the bathroom and ambulating in the room with SpO2 94-95%. Medical History: Reviewed Medications: Reviewed Surgical History: Reviewed Family history: Reviewed Allergies: Reviewed Social History: No tobacco or etoh Code Status: Full Code Discharge Exam rate controlled afib, lungs are clear Discharge Plan Discharge Items Patient Disposition: Home - Self-Care Reason For Visit: NEW AFIB RVR Discharge Diagnosis: Irregular rapid heart rate- Atrial fibrillation Activity: Per Instructions section Activity Comment: no intentional exercise until seen by primary care Non-emergency contact: Primary Care Provider Call non-emergency contact if: your symptoms worsen Follow-up/Referrals: Jennifer Dallas DO [Primary Care Provider] - Diet: Carb Consistent or DM2 Diet Comment: limit cafiene servings to two a day or less Addtl Attending Provider Instructions: Atrial fibrillation is an irregular and often fast heartbeat. Treating this condition is important for several reasons. It can cause blood clots, which can travel from your heart to your brain and cause a stroke. An irregular heartbeat can also increase your risk for heart failure. If you have an episode of atrial fibrillation, you may feel a fluttering, racing, or pounding feeling in your chest called palpitations. You may feel short of breath, light-headed, dizzy, or weak. Treatment can help you feel better and prevent future problems. Treatments can slow the heart rate, control the heart rhythm, or help prevent stroke. You will likely take medicine. You may have a procedure, such as electrical cardioversion or catheter ablation. You can live well and help manage atrial fibrillation by having a heart-healthy lifestyle. This lifestyle may help reduce symptoms and how often you have episodes. Follow-up care is a martin part of your treatment and safety.Be sure to make and go to all appointments, and call your doctor or nurse if you are having problems. It's also a good idea to know your test results and keep a list of the medicines you take. How can you care for yourself at home? Be safe with medicines. Take your medicines exactly as prescribed. Call your doctor or nurse advice line if you think you are having a problem with your medicine. If your doctor has given you a blood thinner to prevent a stroke, be sure you get instructions about how to take your medicine safely. Blood thinners can cause serious bleeding problems. Do not take any [id number] medicines or natural health products without talking to your doctor first. Have a heart-healthy lifestyle. Try to quit or cut back on using tobacco and other nicotine products. This includes smoking and vaping. Avoid second-hand smoke too. Eat heart-healthy foods. These include vegetables, fruits, nuts, beans, lean meat, fish, and whole grains. Limit sodium and sugar. If you drink, try to drink less. Your risk of harm from alcohol is low if you have 2 drinks or lessper week. Avoid alcohol if it triggers symptoms. Work with your doctor to find what is best for you. Be active. Try to get at least 2 hours of physical activity a week. Talk to your doctor about what type and level of exercise is safe for you. Stay at a weight that's healthy for you. Talk to your doctor if you need help losing weight. Try to manage stress. Try to get 7 to 9 hours of sleep each night. Manage other health problems such as high blood pressure, high cholesterol, and diabetes. If you think you may have a problem with alcohol or drug use, talk to your doctor. .Check your pulse regularly if your doctor recommends it. Place two fingers on the artery at the palm side of your wrist, in line with your thumb. Pending Studies at Discharge: No Stand-Alone Forms: My [facility], Smoking Cessation Medications and DC Order Prescriptions: New metoprolol tartrate 50 mg Tablet 50 mg PO BID Qty: 60 3RF digoxin 125 mcg (0.125 mg) tablet 125 mcg PO DAILY Qty: 30 3RF Eliquis 5 mg Tablet 5 mg PO BID Qty: 60 3RF Continued levothyroxine [Synthroid] 75 mcg tablet 75 mcg PO QAM Qty: 90 3RF lisinopril 2.5 mg tablet 2.5 mg PO DAILY Qty: 90 3RF Jardiance 10 mg tablet 10 mg PO DAILY Qty: 90 3RF Prolia 60 mg/mL syringe 60 mg subcut DIRECTED turmeric 400 mg capsule 400 mg PO 1200 rosuvastatin 20 mg tablet 20 mg PO DAILY Qty: 90 3RF pyridoxine (vitamin B6) [Vitamin B-6] 100 mg tablet 100 mg PO 1200 oreganol capsule 1 cap PO 1200 calcium carbonate [Calcium 500] 500 mg calcium (1,250 mg) tablet 500 mg PO 1200 magnesium 1 tab PO DAILY omega-3 fatty acids 1,000 mg Capsule 2,000 mg PO 1200 cyanocobalamin (vitamin B-12) [Vitamin B-12] 1,000 mcg Tablet 1,000 mcg PO 1200 Multivitamin 50 Plus Tablet 1 tab PO 1200 coenzyme Q10 [Co Q-10] 100 mg Capsule 100 mg PO PM cinnamon bark [Cinnamon] 500 mg Capsule 1 cap PO 1200 cholecalciferol (vitamin D3) [Vitamin D3] 2,000 unit Tablet 1 tab PO 1200 Ocuvite Eye Health 50 mg-15 unit- 4.5 mg-2.5 mg Tablet,Chewable 1 tab PO PM amoxicillin 500 mg capsule 500 mg PO UD PRN (Reason: dental procedures) Rx Instructions: 500 mg PO Take 4 capsules 1 hour prior to dental procedures; metformin 500 mg tablet extended release 24 hr 500 mg PO UD Rx Instructions: 2 tabs (1000 mg) po am and 1 tab (500 mg) po pm Discontinued hydrochlorothiazide 12.5 mg capsule 12.5 mg PO QAM Qty: 90 3RF Discharge Orders: Discharge Order (Routine); Ordered 08/26/24 Ordered By: Hugo Maynard Admission Data Admit Date/Time: 08/24/24 16:10 Attending Provider: Hugo Maynard Admit Provider: Luis Avalos Primary Care Provider: Jennifer Dallas Other Providers: Luis Avalos Other Interventions: Discharge Summary Assessment (RN) Last Done: 08/26/24 13:07 Hospital Stay Data Consultations 08/24/24 15:37 ED Decision to Admit Stat Pending Results Patient Have Any Pending Studies at Discharge: No Discharge Instructions Given to Patient (Per Discharging Provider) Atrial fibrillation is an irregular and often fast heartbeat. Treating this condition is important for several reasons. It can cause blood clots, which can travel from your heart to your brain and cause a stroke. An irregular heartbeat can also increase your risk for heart failure. If you have an episode of atrial fibrillation, you may feel a fluttering, racing, or pounding feeling in your chest called palpitations. You may feel short of breath, light-headed, dizzy, or weak. Treatment can help you feel better and prevent future problems. Treatments can slow the heart rate, control the heart rhythm, or help prevent stroke. You will likely take medicine. You may have a procedure, such as electrical cardioversion or catheter ablation. You can live well and help manage atrial fibrillation by having a heart-healthy lifestyle. This lifestyle may help reduce symptoms and how often you have episodes. Follow-up care is a martin part of your treatment and safety.Be sure to make and go to all appointments, and call your doctor or nurse if you are having problems. It's also a good idea to know your test results and keep a list of the medicines you take. How can you care for yourself at home? Be safe with medicines. Take your medicines exactly as prescribed. Call your doctor or nurse advice line if you think you are having a problem with your medicine. If your doctor has given you a blood thinner to prevent a stroke, be sure you get instructions about how to take your medicine safely. Blood thinners can cause serious bleeding problems. Do not take any mnjy-[id number] medicines or natural health products without talking to your doctor first. Have a heart-healthy lifestyle. Try to quit or cut back on using tobacco and other nicotine products. This includes smoking and vaping. Avoid second-hand smoke too. Eat heart-healthy foods. These include vegetables, fruits, nuts, beans, lean meat, fish, and whole grains. Limit sodium and sugar. If you drink, try to drink less. Your risk of harm from alcohol is low if you have 2 drinks or lessper week. Avoid alcohol if it triggers symptoms. Work with your doctor to find what is best for you. Be active. Try to get at least 2 hours of physical activity a week. Talk to your doctor about what type and level of exercise is safe for you. Stay at a weight that's healthy for you. Talk to your doctor if you need help losing weight. Try to manage stress. Try to get 7 to 9 hours of sleep each night. Manage other health problems such as high blood pressure, high cholesterol, and diabetes. If you think you may have a problem with alcohol or drug use, talk to your doctor. .Check your pulse regularly if your doctor recommends it. Place two fingers on the artery at the palm side of your wrist, in line with your thumb. Total Time Total Time Spent Total Time Spent (In Minutes): It required greater than 30 minutes to prepare this patient for discharge. Coding Level of Care Code 77085 INP/OBS DISCH >30 MIN Diagnoses New onset a-fib I48.91 Type 2 diabetes mellitus without complication, without long-term current use of insulin E11.9 Diabetes mellitus longterm insulin use: without machine long goods helper use Diabetes mellitus complication status: without complication
== END 2024-08-26 14:10 | disposition home or self-care (01) | DRG 310 ==
LOC: ED 10:23 → SUATTDRO 16:10 → 2S 16:10 → INTOOBSV 16:10 → 2S 17:52